=== PATIENT | male | born 1930 | race Caucasian/White ===

== ENCOUNTER 2018-11-26 03:24 | Inpatient (IN) | payer MEDICARE ==
[2018-11-26 04:33] LABS: Troponin I 0.029 ng/mL (< 0.028)
[2018-11-26] MEDS ORDERED: Morphine 2 MG/ML SYRINGE ONE ×2 (05:19→08:38)
[2018-11-26 07:23] LABS: Troponin I 0.022 ng/mL (< 0.028)
[2018-11-26] MEDS ORDERED: hydrALAZINE 20 MG/ML VIAL SLOW IVP PRN (07:54)
[2018-11-26] MEDS ORDERED: Sodium Chloride 0.45% 500 ML IV SCH (08:00)
--- NOTE | 2018-11-26 09:05 | RAD ---
CHEST 1 VIEW AND ABDOMEN 2 VIEWS: Date: 11/26/18 HISTORY: Small bowel obstruction, bradycardia, hypotension. FINDINGS/IMPRESSION: There are changes of median sternotomy. The heart size is normal. The aorta is tortuous. There is a n asogastric tube with tip in the stomach. There are mild atelectatic changes at the lung bases. No marito e air is seen. There is air in loops of small and large bowel. Some of the small bowel loops are dila josé. There are degenerative changes in the spine. POS: [facility]
[2018-11-26] MEDS: Sodium Chloride 0.45% 1,000 ML IV SCH ×3 (09:21→23:17)
[2018-11-26] MEDS ORDERED: Pantoprazole 40 MG VIAL ONE (09:22)
[2018-11-26] MEDS: Pantoprazole 40 MG VIAL IVP SCH (09:23)
--- NOTE | 2018-11-26 11:50 | HP ---
HISTORY OF PRESENT ILLNESS: Iban Dinh is an 88-year-old male patient lives in [place]. He is a retired electronic game developer working for 25 years. He had an open appendectomy in 1955. He had the acute onset of abdominal distention and pain yesterday. Last colonoscopy was 12 or 14 years ago performed at [facility]. He has been having problems with intermittent constipation as he takes Tylenol No. 3 every 2 to 3 days along with tramadol for his arthritis pain. He takes stool softeners to facilitate bowel movements. He had severe episode of pain and presented to the emergency room in [place]. In [place], the patient underwent abdominopelvic CAT scan noncontrast revealing changes suggestive of a bowel obstruction. He had abdominal x-rays revealing air-fluid levels. He had a small caliber NG tube placed. As I am seeing him this morning at 0748 hours, there are no IV fluids running. Troponin is 0.029, white count 7, hemoglobin 12, creatinine 1.72, potassium 5.1, chloride 105, and glucose 122. The patient has not passed stool or flatus since yesterday, had a bowel movement yesterday. CAT scan suggested bowel obstruction distally. While in [place], the patient was trying to urinate after receiving morphine, was standing and became weak, resting his head on his right shoulder, but never fell and never passed out. He has been seen in the emergency room and telemetry monitoring requested. The patient states that he has dizzy episodes at home. The patient had a coronary artery bypass grafting in 2005 along with AVR. He is followed by Dr. Mcallister. He sees by Dr. Mcallister every 6 months. He is scheduled to have an echocardiogram next week. He is scheduled to see Dr. Mcallister next month. He reports having had a stress test probably 2006, 2007 in preparation for total knee replacements and this was normal. He does not have any chest pain or pressure. ALLERGIES: PENICILLIN. SOCIAL HISTORY: Tobacco, none. Alcohol, occasional beer. MEDICATIONS: 1. Crestor 20 mg a day. 2. Protonix 40 mg a day. 3. Furosemide 40 mg a day. 4. Zetia 10 mg a day. 5. Carvedilol 40 mg a day. 6. Aspirin 325 mg a day. 7. Stool softeners as needed. 8. Tylenol No. 3 p.r.n. pain. 9. Ultram p.r.n. pain. He takes Tylenol No. 3 and Ultram 2 to 3 days a week occasionally for severe arthritic pain. 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 PAST SURGICAL HISTORY: Open appendectomy in 1956, coronary artery bypass grafting with AVR in 2005, bilateral total knee replacements in 2006, right shoulder exploration that they could not repair in 2006 or 2007, in 2013 Dr. Priest performed EGD for bleeding duodenal ulcer noted a hiatal hernia, and colonoscopy at [facility] 10 to 12 years ago. REVIEW OF SYSTEMS: Ten-point noncontributory otherwise. FAMILY HISTORY: Noncontributory. PHYSICAL EXAMINATION: VITAL SIGNS: Blood pressure 179/66, pulse 63, respirations 18, and temperature 98.5 degrees. HEAD, EARS, EYES, NOSE, AND THROAT: Unremarkable. LUNGS: Clear to auscultation. CARDIAC: Regular rate and rhythm without murmur or gallop. ABDOMEN: Soft, distended, and tympanitic. Mild tenderness without rebound. EXTREMITIES: No ankle edema. Palpable pedal pulses. LABORATORY DATA: Sodium 141, potassium 5.1, carbon dioxide 26, BUN 23, GFR 41, creatinine 1.72 (baseline for him). Lactic acid 9.8. Liver function tests normal. Hemoglobin 12.8. ASSESSMENT AND PLAN: 1. Small-bowel obstruction. He has a small caliber NG tube placed to about 60 cm. We will obtain a 3-view abdomen today. We will continue NG tube suction. We will plan a small bowel follow-through in the morning, observe. 2. Chronic kidney disease, stable. 3. Initiate IV fluids. He has been in the ER hold for several hours without IV fluids. 4. Coronary artery disease, stable. 5. Prosthetic aortic valve replacement. 6. Allergy to penicillin. 7. Hypertension. 8. History of hiatal hernia; duodenal ulcer bleeding, PPI prophylaxis. 9. Deep venous thrombosis prophylaxis. 10. Consult Dr. Mcallister. 11. The patient is due for an echocardiogram. We will obtain it as there is possibility he may need operative intervention. Hopefully, we can avoid this. Job ID: [id number]
[2018-11-26] MEDS ORDERED: Acetaminophen 1,000 MG in Premix Bag 1 BAG IVPB SCH (12:15)
[2018-11-26] MEDS ORDERED: Benzocaine 20% Spray 60 ML CAN ONE (15:21)
[2018-11-26] MEDS ORDERED: Lidocaine Viscous Sol 2% 15 ml UD Cup ONE (15:21)
--- NOTE | 2018-11-26 17:00 | RAD ---
ABDOMEN ONE VIEW: HISTORY: NG tube placement. FINDINGS: The nasogastric tube is in the gastric fundus, in the left upper quadrant. The bowel gas pattern is nonspecific with a dilated loop of small bowel in the left upper quadrant. There are degenerative ch anges in the spine. POS: [facility]
--- NOTE | 2018-11-26 17:38 | CON ---
DATE OF CONSULTATION: 11/26/2018 TYPE OF CONSULTATION: Cardiology consultation. PRIMARY ENTERPRISE INFRASTRUCTURE ARCHITECT: Callum Mcallister MD. REASON FOR CONSULTATION: Preoperative evaluation. HISTORY OF PRESENT ILLNESS: Mr. Dinh is a pleasant 88-year-old white gentleman, who comes to the hospital for what appears to be a small bowel obstruction. He was evaluated by Dr. De Jesus and is currently being treated conservatively for this. He has not had any gas or bowel movements in the last 24 hours. He has a history of mitral valve disease, status post mitral valve replacement. He has a bioprosthetic valve in the mitral position in 2005, at that same time he also had bypass. Last echocardiogram was on June 01 2017. At which point, his EF was 35% to 40%, bioprosthetic mitral valve was in position, and appeared to be functioning normally. The aortic valve was sclerotic, but open well with moderate aortic insufficiency and moderate tricuspid regurgitation. PAST MEDICAL HISTORY: 1. Hypertension. 2. Hyperlipidemia. 3. Chronic kidney disease. 4. Upper GI bleed on Xarelto. 5. History of paroxysmal atrial fibrillation. PAST SURGICAL HISTORY: 1. Tonsillectomy. 2. Appendectomy. 3. CABG as above. 4. Mitral valve replacement, bioprosthetic as above. 5. Bilateral total knee replacement. 6. Right shoulder surgery. MEDICATIONS: Outpatient medications, most recent note include; 1. Flomax. 2. Pantoprazole. 3. Tylenol No. 3. 4. Zetia 10 mg a day. 5. Aspirin 325 a day. 6. Crestor 20 a day. 7. Furosemide 40 a day. 8. Carvedilol 12.5 b.i.d. 9. Hydralazine 10 twice a day. ALLERGIES: PENICILLINS. REVIEW OF SYSTEMS: A 12-point review of systems was done and was found to be negative unless stated in the history of present illness. SOCIAL HISTORY: No alcohol, tobacco, or drugs. FAMILY HISTORY: Noncontributory. PHYSICAL EXAMINATION: VITAL SIGNS: Temperature 97.2, pulse 80, respiratory rate 18, saturations 98% on 2 L, and blood pressure 179/66. GENERAL: Awake, alert, oriented x3. No distress. HEENT: Normocephalic and atraumatic. NECK: Supple. LUNGS: Clear. CARDIOVASCULAR: S1 and S2. No S3 or S4. There is a grade 2/6 systolic murmur at the apex, holosystolic. ABDOMEN: Soft. Bowel sounds are very much reduced. EXTREMITIES: Trace edema. SKIN: Warm and dry. LABORATORY DATA: Laboratory work was reviewed. Troponin was 0.02 and then 0.02. CBC was reviewed. Chemistries were reviewed. Creatinine is 1.7, GFR of 38. Troponins x4 are 0.04, 0.06, 0.02, and 0.02 with normal CK-MB. Albumin of 4.0, lipase of 33. UA was unremarkable. ASSESSMENT AND PLAN: 1. Small bowel obstruction. 2. History of mitral valve replacement. 3. History of coronary artery bypass graft in 2005. No ischemia on most recent MPI just a few years ago. Currently asymptomatic. 4. Preoperative evaluation: He would be high risk for an intermediate risk procedure, high risk given his coronary artery disease and an ischemic cardiomyopathy, EF in the 35% to 40%. Certainly, he would not be prohibitive and if this would be a life-saving situation, he will need to proceed with surgery for his small bowel obstruction. At this time, the plan is to do conservative therapy and hopefully avoid surgery, but Dr. De Jesus is evaluating on a daily basis. 5. Dr. Mcallister, his primary missile facilities repairer, will evaluate in the morning. Job ID: [id number]
[2018-11-26 19:12] VITALS: BMI 29.0
[2018-11-26] MEDS ORDERED: Morphine 4 MG/ML VIAL SLOW IVP PRN (19:20)
[2018-11-26] MEDS: Ketorolac Tromethamine 30 MG/ML VIAL IVP PRN (20:23)
[2018-11-26] MEDS: Enoxaparin Sodium 30 MG/0.3 ML SYRINGE SC SCH (20:25)
[2018-11-26] MEDS: Acetaminophen 1,000 MG in Premix Bag 1 BAG IVPB PRN (20:45)
[2018-11-27] MEDS: Ondansetron PF 4 MG/2 ML Vial IVP PRN ×2 (01:16→13:21)
[2018-11-27 06:26] LABS: #Lymphocytes 1.4 thou/uL (1.20-3.40); #Monocytes 1.1 thou/uL (0.11-0.59); #Neutrophils 8.2 thou/uL (1.40-6.50); %Basophils 0.2 % (0.0-1.0); %Eosinophils 0.3 % (0.0-10.0); %Monocytes 10.1 % (0.0-10.0); %Neutrophils 76.4 % (42.0-75.0); Hemoglobin 14.6 g/dL (14.0-18.0); Mean Corpuscular HGB CONC 30.5 g/dL (32.0-36.0); Mean Corpuscular Hemoglobin 29.2 pg (27.0-31.0); Platelet Count 172 thou/uL (130-400); RBC Distribution Width 13.5 % (11.5-14.5); Red Blood Cell (RBC) Count 4.99 mill/uL (4.70-6.10); White Blood Cell (WBC) Count 10.7 thou/uL (4.8-10.8)
[2018-11-27 06:49] LABS: Anion Gap 16 mmol/L (10-20); BUN (Urea Nitrogen) 25 mg/dL (8.4-25.7); Calc. Creatinine Clearance 48 mL/min (70-130); Calcium 9.1 mg/dL (7.8-10.44); Carbon Dioxide 17 mmol/L (23-31); Chloride 107 mmol/L (98-107); Estimated GFR-MDRD 46; Glucose 115 mg/dL (83-110); Potassium 4.3 mmol/L (3.5-5.1); Sodium 136 mmol/L (136-145)
[2018-11-27] MEDS: Ketorolac Tromethamine 30 MG/ML VIAL IVP PRN (07:12)
[2018-11-27] MEDS: Sodium Chloride 0.45% 1,000 ML IV SCH ×2 (07:52→18:09)
[2018-11-27] MEDS: Pantoprazole 40 MG VIAL IVP SCH (09:52)
[2018-11-27] MEDS ORDERED: MD-Gastroview 120 ML BOT ONE (09:58)
[2018-11-27] MEDS: Acetaminophen 1,000 MG in Premix Bag 1 BAG IVPB PRN (13:26)
[2018-11-27] MEDS ORDERED: Meropenem 2 GM, Admixture Fee 1 EACH in Sodium Chloride 0.9% 100 ML IVPB SCH (13:45)
[2018-11-27] MEDS ORDERED: Bupivacaine HCl 0.5%/Epinephrine 1:200,000/PF 30 ml Vial ONE (13:59)
--- NOTE | 2018-11-27 14:37 | RAD ---
SMALL BOWEL SERIES: DATE: 11/27/2018. HISTORY: An 88-year-old male with small bowel obstruction. FINDINGS: Vet Assistant view demonstrates air-filled dilated small bowel loops. Gastrografin injected into NG tube pro gresses very slowly in the proximal dilated small intestine. There is no progression between the 1 h our and 2 hour images. IMPRESSION: Evidence for high-grade small bowel obstruction. POS: [facility]USAN
--- NOTE | 2018-11-27 14:57 | PRG ---
DATE OF SERVICE: 11/27/2018 SUBJECTIVE: Iban Dinh is still having quite a bit of pain and abdominal distention. He has not passed any stool or flatus. Abdominal x-rays, 2 hours small-bowel follow-through reveal findings consistent with complete bowel obstruction. There has been no progression of contrast in 2 hours. We have put his NG tube back to suction. OBJECTIVE: VITAL SIGNS: 98.2 degrees, 64, 16, 176/76. LUNGS: Clear to auscultation. CARDIAC: Regular rate and rhythm. ABDOMEN: Distended, tympanitic, slightly tender, but no rebound. No guarding. EXTREMITIES: Unremarkable. LABORATORY DATA: White count 10, hemoglobin 14. Basic metabolic profile unremarkable. Creatinine 1.46, which is improved from yesterday. Potassium 4.3. Troponin 0.022. ASSESSMENT AND PLAN: Complete bowel obstruction. We recommend laparotomy. He is too distended and tympanitic for laparoscopy. His and daughter are in the room with him. Risks of operation including infection, bleeding, reoperation, anastomotic leakage, cardiac events (known coronary artery disease) discussed. The patient agrees and wishes to proceed to relieve his discomfort. Job ID: [id number]
[2018-11-27] MEDS ORDERED: Sodium Chloride 0.9% 20 ML ONE (15:33)
[2018-11-27] MEDS ORDERED: Fentanyl 100 MCG/2 ML VIAL ONE (15:35)
[2018-11-27] MEDS ORDERED: Ondansetron HCl/PF 4 MG/2 ML Vial IVP PRN ×2 (15:39→16:33)
[2018-11-27] MEDS ORDERED: Promethazine HCl 25 MG/ML VIAL SLOW IVP PRN ×2 (15:39→16:33)
[2018-11-27] MEDS ORDERED: Promethazine HCl 25 MG/ML VIAL IM PRN ×2 (15:39→16:33)
[2018-11-27] MEDS ORDERED: ePHEDrine/0.9% NaCl/PF SYRINGE 50 mg/10 ml ONE (16:36)
[2018-11-27] MEDS ORDERED: Glycopyrrolate 0.2 MG/ML 5 ML SYRINGE ONE (16:36)
[2018-11-27] MEDS ORDERED: PHENYLEPHRINE-NS 100 MCG/ML 10 ML SYRINGE ONE (16:36)
[2018-11-27] MEDS ORDERED: Rocuronium Bromide 10 MG/ML (10ML VIAL) ONE (16:36)
[2018-11-27] MEDS ORDERED: Succinylcholine Chloride 20 MG/ML 10 ml SYRINGE FS ONE (16:36)
[2018-11-27] MEDS: Lactated Ringer's 1,000 ML IV SCH ×2 (17:35→22:21)
--- NOTE | 2018-11-27 17:41 | RAD ---
PORTABLE CHEST ONE VIEW: 11/27/18 at 4:39 p.m. HISTORY: Respiratory distress. FINDINGS/IMPRESSION: Comparison is made with the exam of 11/26/18. Changes of median sternotomy are again seen. There is a nasogastric tube with tip in the stomach. The re is contrast in the stomach. Atelectatic changes versus mild infiltrates at the lung bases with pro bable small effusions. No pneumothoraces are seen. there is a right subclavian central line with tip in the projection of the SVC. POS: OFF
[2018-11-27] MEDS: Acetaminophen 1,000 MG in Premix Bag 1 BAG IVPB SCH ×2 (19:11→23:04)
[2018-11-27] MEDS: Enoxaparin Sodium 30 MG/0.3 ML SYRINGE SC SCH (20:03)
[2018-11-27] MEDS: Carvedilol 6.25 MG TAB PO SCH (20:04)
--- NOTE | 2018-11-27 23:41 | OP ---
DATE OF PROCEDURE: 11/27/2018 PREOPERATIVE DIAGNOSIS: Mechanical small bowel obstruction secondary to adhesions. POSTOPERATIVE DIAGNOSIS: Mechanical small bowel obstruction secondary to adhesions with ischemic small bowel, regained viability after release of adhesion. PROCEDURE PERFORMED: Right subclavian vein central line. ANESTHESIA: General, local 0.5% Marcaine with epinephrine 30 mL. DESCRIPTION OF PROCEDURE: The patient was taken to the operating room under general anesthesia, abdomen was prepared with ChloraPrep, draped in routine fashion. Hart catheter placed. It was left in place. Incision was made periumbilically and carried down through skin, subcutaneous tissue, centered about the umbilicus. Entered the abdominal cavity, there was some bloody fluid in the abdominal cavity, this was evacuated. There was an obstructive adhesive band in the right lower quadrant (prior appendectomy in 195) and this was released, releasing the obstructive process. Small bowel contents milked retrograde into the stomach, evacuating 3 L of gastric content. Once this was accomplished, the small bowel appeared to be ischemic ileum and it was returned to the abdominal cavity and abdominal cavity irrigated and washed with 2 L of saline, evacuating it, returning clear fluid. Small bowel was inspected and viability had returned and there was no need for resection and no need for a second look. Sponge and needle counts were correct. Redundant omentum removed and discarded. It was removed, divided between clamps, ligated with 2-0 silk ties. Seprafilm was placement between the omentum and the abdominal wall and fascia approximated with continuous suture #1 PDS. Skin and subcutaneous tissues irrigated. Skin approximated with continuous subcutaneous suture of 4-0 Monocryl and [place] glue applied. A right subclavian vein central line was placed using Seldinger technique after ChloraPrep. J-wire had been removed, catheter secured with 2 interrupted sutures of 3-0 silk. Each port aspirated for blood, flushed with saline solution. The patient tolerated the procedure well. Job ID: [id number]
[2018-11-28] MEDS: Acetaminophen 1,000 MG in Premix Bag 1 BAG IVPB SCH ×4 (05:27→23:56)
[2018-11-28] MEDS: Lactated Ringer's 1,000 ML IV SCH ×4 (07:38→23:56)
[2018-11-28] MEDS: Lisinopril 5 MG TAB PO SCH (08:40)
[2018-11-28] MEDS: Tamsulosin HCl 0.4 MG CAP PO SCH (08:41)
[2018-11-28] MEDS: Carvedilol 6.25 MG TAB PO SCH ×2 (08:41→20:49)
[2018-11-28] MEDS: Pantoprazole 40 MG VIAL IVP SCH (08:41)
[2018-11-28 11:03] LABS: ALT (SGPT) 9 U/L (8-55); AST (SGOT) 14 U/L (5-34); Alkaline Phosphatase 65 U/L (40-150); Anion Gap 15 mmol/L (10-20); BUN (Urea Nitrogen) 40 mg/dL (8.4-25.7); Bilirubin, Total 1.5 mg/dL (0.2-1.2); Calc. Creatinine Clearance 35 mL/min (70-130); Calcium 8.9 mg/dL (7.8-10.44); Carbon Dioxide 22 mmol/L (23-31); Chloride 110 mmol/L (98-107); Estimated GFR-MDRD 32; Globulin 2.7 g/dL (2.4-3.5); Glucose 100 mg/dL (83-110); Potassium 3.8 mmol/L (3.5-5.1); Protein, Total 5.7 g/dL (5.8-8.1); Sodium 143 mmol/L (136-145)
[2018-11-28 11:13] LABS: Hemoglobin 12.2 g/dL (14.0-18.0); Mean Corpuscular HGB CONC 32.1 g/dL (32.0-36.0); Mean Corpuscular Hemoglobin 29.2 pg (27.0-31.0); Mean Corpuscular Volume 91.1 fL (78.0-98.0); Platelet Count 131 thou/uL (130-400); RBC Distribution Width 13.1 % (11.5-14.5); Red Blood Cell (RBC) Count 4.16 mill/uL (4.70-6.10); White Blood Cell (WBC) Count 7.1 thou/uL (4.8-10.8)
[2018-11-28 11:25] LABS: Band 54 % (5-11); Eosinophils 2 % (0-10); Lymphocytes 11 % (21-51); MDiff Complete? YES; Metamyelocyte 2 % (0-0); Monocytes 5 % (0-10); Neutrophil 26 % (42-75); Ovalocytes SLIGHT = 2-5 cells (100X) (0-1/hpf); Platelet Morphology Comment Appears Adequate; Reflex for Review?? YES
[2018-11-28] MEDS ORDERED: Sodium Chloride 0.9% 500 ML IV SCH (17:30)
--- NOTE | 2018-11-28 17:53 | PRG ---
DATE OF SERVICE: 11/28/2018 SUBJECTIVE: Iban Dinh is doing well today. He is taking abundant ice chips, drinking water, and taking carbonated beverages. He has an NG tube in place. He was instructed not to take carbonated beverages. He is instructed to take only sips and chips, but not to drink water. We will place a communication order to nursing to facilitate this restriction. OBJECTIVE: VITAL SIGNS: Temperature 98.1 degrees, heart rate 96, and blood pressure 138/62. LUNGS: Clear to auscultation. CARDIAC: Regular rate and rhythm without murmur or gallop. ABDOMEN: Soft, quiet, slightly tympanitic and distended. No guarding. Wound looks good. NG tube output 1775 over 24 hours (this may reflect his copious oral intake with an NG tube). LABORATORY DATA: The patient's white count is 7, hemoglobin 12.2, and he has a left shift. Sodium 143, potassium 3.8, BUN 40, creatinine 2.01, and bilirubin 1.5. ASSESSMENT AND PLAN: 1. Acute kidney injury. We will increase his intravenous fluids slightly. Continue intravenous fluid hydration. 2. Left shift on his white count. This is part related to his mucosal injury from his acute vascular ischemic event of his small bowel. This should resolve with time. Bowel resection was not necessary. There is no anastomosis to worry about a leak. We will, however, add antibiotics to cover him for any translocated bacteria due to the mucosal barrier insult. 3. Coronary artery disease. 4. Benign prostatic hypertrophy. The patient's Hart catheter was removed. He has voided today, although sparingly. Job ID: [id number]
[2018-11-28] MEDS: metroNIDAZOLE 500 MG in Premix Bag 1 BAG IVPB SCH (20:49)
[2018-11-28] MEDS: Enoxaparin Sodium 30 MG/0.3 ML SYRINGE SC SCH (20:50)
[2018-11-29] MEDS: metroNIDAZOLE 500 MG in Premix Bag 1 BAG IVPB SCH ×3 (05:26→20:56)
[2018-11-29] MEDS: Acetaminophen 1,000 MG in Premix Bag 1 BAG IVPB SCH ×3 (05:27→18:49)
[2018-11-29 06:24] LABS: Anion Gap 12 mmol/L (10-20); BUN (Urea Nitrogen) 38 mg/dL (8.4-25.7); Calc. Creatinine Clearance 48 mL/min (70-130); Calcium 8.6 mg/dL (7.8-10.44); Carbon Dioxide 22 mmol/L (23-31); Chloride 110 mmol/L (98-107); Estimated GFR-MDRD 46; Glucose 95 mg/dL (83-110); Potassium 3.6 mmol/L (3.5-5.1); Sodium 140 mmol/L (136-145)
[2018-11-29] MEDS: Carvedilol 6.25 MG TAB PO SCH ×2 (09:09→21:00)
[2018-11-29] MEDS: Lisinopril 5 MG TAB PO SCH (09:10)
[2018-11-29] MEDS: Pantoprazole 40 MG VIAL IVP SCH (09:11)
[2018-11-29] MEDS: Tamsulosin HCl 0.4 MG CAP PO SCH (09:11)
[2018-11-29] MEDS: Lactated Ringer's 1,000 ML IV SCH ×2 (11:54→20:53)
--- NOTE | 2018-11-29 15:04 | PRG ---
DATE OF SERVICE: 11/29/2018 SUBJECTIVE: Mr. Dinh is doing well today. He is hungry. He wants to eat. OBJECTIVE: VITAL SIGNS: Temperature 98.4 degrees, pulse 80, and blood pressure 140/78. LUNGS: Clear to auscultation. CARDIAC: Regular rate and rhythm without murmur or gallop. ABDOMEN: Soft, nontympanitic. Occasional rare bowel sounds. No flatus or stool. NG tube output for 24 hours has been 1400 mL. He is taking copious ice chips, however. EXTREMITIES: Unremarkable. LABORATORY DATA: Hemoglobin 12.2 yesterday. No labs today. Electrolytes: Sodium 140, potassium 3.6, BUN 38 down from 40 yesterday, creatinine 1.45 down from 2.01 yesterday, and GFR 46. ASSESSMENT AND PLAN: 1. Status post laparotomy and lysis of adhesions for an obstructive adhesion with acutely ischemic bowel, regained its viability after release of the adhesions. He has mucosal injury, recovering, and an ileus. We would trial of clamping the NG tube today, and at 5 o'clock, the nurse will call me the residual, and maybe we can remove the tube. After we removed the NG tube, we would continue sips and chips for now, and he had medications. Tomorrow if he is doing well, we may start liquids. Overall, he is making good progress, and he is stable on telemetry. Echocardiogram today reveals ejection fraction of 35% to 40%, severe tricuspid regurgitation, normally functioning bioprosthetic artificial valve, mitral. Job ID: [id number]
[2018-11-29] MEDS: Enoxaparin Sodium 30 MG/0.3 ML SYRINGE SC SCH (21:15)
[2018-11-30] MEDS: Acetaminophen 1,000 MG in Premix Bag 1 BAG IVPB SCH ×2 (00:05→05:23)
[2018-11-30] MEDS: metroNIDAZOLE 500 MG in Premix Bag 1 BAG IVPB SCH (04:18)
[2018-11-30 06:55] LABS: Anion Gap 12 mmol/L (10-20); BUN (Urea Nitrogen) 27 mg/dL (8.4-25.7); Calc. Creatinine Clearance 57 mL/min (70-130); Calcium 8.5 mg/dL (7.8-10.44); Carbon Dioxide 24 mmol/L (23-31); Chloride 109 mmol/L (98-107); Estimated GFR-MDRD 54; Glucose 93 mg/dL (83-110); Magnesium 1.7 mg/dL (1.6-2.6); Potassium 3.6 mmol/L (3.5-5.1); Sodium 141 mmol/L (136-145)
[2018-11-30 08:40] LABS: #Eosinphils 0.7 thou/uL (0.0-0.7); #Lymphocytes 0.8 thou/uL (1.20-3.40); #Monocytes 0.6 thou/uL (0.11-0.59); #Neutrophils 4.7 thou/uL (1.40-6.50); %Eosinophils 9.8 % (0.0-10.0); %Lymphocytes 11.2 % (21.0-51.0); %Monocytes 8.8 % (0.0-10.0); %Neutrophils 70.1 % (42.0-75.0); MDiff Complete? YES; Mean Corpuscular HGB CONC 32.2 g/dL (32.0-36.0); Mean Corpuscular Hemoglobin 29.9 pg (27.0-31.0); Mean Corpuscular Volume 92.9 fL (78.0-98.0); Mean Platelet Volume 8.1 fL (7.4-10.4); Platelet Count 111 thou/uL (130-400); Platelet Morphology Comment Appears Decreased; Polychromasia SLIGHT = 2-3 cells (100X) (0-2/hpf); RBC Distribution Width 12.8 % (11.5-14.5); Red Blood Cell (RBC) Count 3.33 mill/uL (4.70-6.10); White Blood Cell (WBC) Count 6.7 thou/uL (4.8-10.8)
[2018-11-30] MEDS: Lactated Ringer's 1,000 ML IV SCH (09:23)
[2018-11-30] MEDS: Tamsulosin HCl 0.4 MG CAP PO SCH (09:38)
[2018-11-30] MEDS: Pantoprazole 40 MG VIAL IVP SCH (09:38)
[2018-11-30] MEDS: Lisinopril 5 MG TAB PO SCH (09:38)
[2018-11-30] MEDS: Carvedilol 6.25 MG TAB PO SCH ×2 (09:38→21:08)
[2018-11-30] MEDS ORDERED: Acetaminophen 500 MG TAB PO PRN (11:25)
[2018-11-30] MEDS ORDERED: traMADol HCl 50 MG TAB PO PRN ×3 (11:25→11:26)
--- NOTE | 2018-11-30 11:58 | PRG ---
DATE OF SERVICE: 11/30/2018 SUBJECTIVE: Mr. Dinh is doing well today. His NG-tube was removed last night when he had a residual of only 50 mL after 8-hour clamping. He has had bowel movements and passed flatus today. He is tolerating his liquids. OBJECTIVE: VITAL SIGNS: 98 degrees, 89, and 141/87. HEAD, EARS, EYES, NOSE, AND THROAT: Unremarkable. LUNGS: Clear to auscultation. CARDIAC: Regular rate and rhythm without murmur or gallop. ABDOMEN: Soft, protuberant, obese, and non-tympanitic. EXTREMITIES: Unremarkable. LABORATORY DATA: White count 6, hemoglobin 10, and differential unremarkable. Basic metabolic profile is normal. Potassium 3.6, BUN has decreased from 40 to 27, and creatinine from 2 to 1.26 in the normal range. ASSESSMENT AND PLAN: 1. Doing well. Gastrointestinal functions recovered. I had placed him on Levaquin and Flagyl (penicillin allergy) as a prophylaxis to prevent bacteremia from mucosal barrier leaking from this acutely ischemic bowel, which is now resolved. I will stop his antibiotics. We will advance him to a regular diet. From a surgical perspective, he can be discharged home in the next day or 2. Dr. Patton is covering and will see him over the weekend. He does not have any abdominal pain. He is having his baseline arthritis pain when he first gets up in the morning. Medications on discharge will be Tylenol [id number], p.r.n. ibuprofen (minimize use due to chronic kidney disease), and Ultram as needed. I left a prescription on his chart. 2. History of atrial fibrillation, follow Dr. Mcallister. I have discussed with Dr. Mcallister. We will leave him on telemetry unit because of this history. It is safe to anticoagulate him anytime from a surgical standpoint. Job ID: [id number]
[2018-11-30] MEDS: Apixaban 5 MG TAB PO SCH (21:08)
[2018-12-01] MEDS: Furosemide 40 MG TAB PO SCH (05:07)
[2018-12-01] MEDS ORDERED: Aspirin 325 mg Enteric Coated Tablet PO SCH (09:00)
[2018-12-01] MEDS: Finasteride 5 MG TAB PO SCH (09:06)
[2018-12-01] MEDS: Apixaban 5 MG TAB PO SCH ×2 (09:06→21:29)
[2018-12-01] MEDS: Rosuvastatin 20 MG TAB PO SCH (09:06)
[2018-12-01] MEDS: Ezetimibe 10 MG TAB PO SCH (09:06)
[2018-12-01] MEDS: Tamsulosin HCl 0.4 MG CAP PO SCH (09:06)
[2018-12-01] MEDS: Carvedilol 6.25 MG TAB PO SCH ×2 (09:07→21:29)
[2018-12-01] MEDS: Aspirin 81 mg Enteric Coated Tablet PO SCH (09:07)
[2018-12-01] MEDS: Acetaminophen/Codeine 30-300mg Tablet PO SCH (09:07)
[2018-12-01] MEDS: Lisinopril 5 MG TAB PO SCH (09:08)
[2018-12-01] MEDS: Polyethylene Glycol 3350 17 GM Packet PO SCH (09:10)
[2018-12-01 11:45] LABS: #Eosinphils 0.5 thou/uL (0.0-0.7); #Lymphocytes 0.8 thou/uL (1.20-3.40); #Monocytes 0.7 thou/uL (0.11-0.59); #Neutrophils 4.7 thou/uL (1.40-6.50); %Basophils 0.3 % (0.0-1.0); %Eosinophils 7.4 % (0.0-10.0); %Lymphocytes 12.3 % (21.0-51.0); %Monocytes 9.8 % (0.0-10.0); %Neutrophils 70.1 % (42.0-75.0); Hemoglobin 11.1 g/dL (14.0-18.0); Mean Corpuscular HGB CONC 31.8 g/dL (32.0-36.0); Mean Corpuscular Hemoglobin 29.3 pg (27.0-31.0); Mean Corpuscular Volume 92.2 fL (78.0-98.0); Mean Platelet Volume 7.5 fL (7.4-10.4); Platelet Count 160 thou/uL (130-400); RBC Distribution Width 12.8 % (11.5-14.5); White Blood Cell (WBC) Count 6.7 thou/uL (4.8-10.8)
[2018-12-01 12:07] LABS: Anion Gap 14 mmol/L (10-20); BUN (Urea Nitrogen) 19 mg/dL (8.4-25.7); Calc. Creatinine Clearance 63 mL/min (70-130); Carbon Dioxide 21 mmol/L (23-31); Chloride 106 mmol/L (98-107); Estimated GFR-MDRD 59; Glucose 112 mg/dL (83-110); Sodium 137 mmol/L (136-145)
[2018-12-01 12:12] LABS: Troponin I 0.074 ng/mL (< 0.028)
--- NOTE | 2018-12-01 13:19 | PDOC.GSPN ---
Surgery Progress Note: Subj - Subjective Narrative: Patient states that he was doing great until last night. He apparently became quite short of breath and had to have oxygen replaced. He states that he felt distended and uncomfortable when he was having trouble breathing but did not have any chest pain. His anticoagulant was restarted this morning. He feels like he is breathing normally today and that his abdomen is less distended. He has passed gas and had several liquid bowel movements. Vital signs are okay on oxygen. Abdomen is soft and nondistended. Bowel sounds are present in his incisions are clean and healing. His lungs are clear to auscultation. Assessment/plan: Dyspnea of unclear cause. May have been due to abdominal distention the patient is also at risk for pneumonia, aspiration, atelectasis, and PE. He is already on therapeutic anticoagulation, and his renal function has just returned to normal so I don't want to get a CT with contrast since I feel like PE is relatively low probability. I will check a chest x-ray, labs and EKG however. We will try to wean him off his oxygen today. If he does alright tonight he will likely go home tomorrow. Doing well from a surgical standpoint from his lysis of adhesions. Surgery Progress Note: Obj - Vital signs Vital signs: Vital Signs - Most Recent Temp Pulse Resp BP Pulse Ox 98.0 F 85 18 111/75 97 12/01/18 11:36 12/01/18 11:36 12/01/18 11:36 12/01/18 11:36 12/01/18 11:36 Surgery Progress Note: Results - Labs Result Diagrams: 12/01/18 11:34 12/01/18 11:34 Lab results: Laboratory Results - last 24 hr 12/01/18 12/01/18 12/01/18 11:34 11:34 11:34 WBC 6.7 RBC 3.80 L Hgb 11.1 L Hct 35.1 L MCV 92.2 MCH 29.3 MCHC 31.8 L RDW 12.8 Plt Count 160 MPV 7.5 Neutrophils % 70.1 Lymphocytes % 12.3 L Monocytes % 9.8 Eosinophils % 7.4 Basophils % 0.3 Neutrophils # 4.7 Lymphocytes # 0.8 L Monocytes # 0.7 H Eosinophils # 0.5 Basophils # 0.0 Sodium 137 Potassium 4.0 Chloride 106 Carbon Dioxide 21 L Anion Gap 14 BUN 19 Creatinine 1.16 Estimated GFR (MDRD) 59 Glucose 112 H Calcium 9.0 Troponin I 0.074 H
--- NOTE | 2018-12-01 15:48 | RAD ---
RADIOGRAPH CHEST 2 VIEWS: Date: 12/01/2017. Time: 1:02 p.m. HISTORY: An 88-year-old male with dyspnea. COMPARISON: One view study of 11/27/2018. FINDINGS: Right subclavian central venous catheter remains with distal tip in the SVC. The lateral view demons trates small bilateral pleural effusions. There were subsegmental atelectasis at the bilateral lung bases on the previous frontal view. The one on the left has improved or resolved. Mild subsegmental atelectasis remains unchanged at the right base. No cardiomegaly. Ectasia and tortuosity of the th oracic aorta. Mid and upper lung zones are clear. No pneumothorax. Sternotomy wires. IMPRESSION: 1. Small bilateral pleural effusions. 2. Mild subsegmental atelectasis at the right lung base. 3. Right subclavian central venous catheter. TIFFANI [] POS: [facility]USAN
--- NOTE | 2018-12-01 16:27 | PDOC.CTH ---
Cardiology Progress Note - Subjective He was more SOB earlier this morning. This has all resolved on its own without a specific intervention. - Objective Vital Signs Temp Pulse Resp BP BP BP Pulse Ox 12/01/18 11:36 98.0 F 85 18 111/75 97 12/01/18 09:08 64 133/87 12/01/18 09:07 133/87 12/01/18 07:41 97.9 F 64 20 133/87 95 Weight 222 lb 14.4 oz 11/30/18 12/01/18 12/02/18 06:59 06:59 06:59 Intake Total 2940 2262 130 Output Total 1555 1230 500 Balance 1385 1032 -370 - Physical Examination General/Neuro: alert & oriented x3, NAD Neck: no JVD present Lungs: CTA, unlabored respirations Heart: RRR Abdomen: NT/ND Extremities: + edema B (1+) - Telemetry Telemetry Rhythm: Afib HR 80's. - Labs Result Diagrams: 12/01/18 11:34 12/01/18 11:34 Troponin/CKMB Troponin I 0.074 ng/mL (< 0.028) H 12/01/18 11:34 - Assessment/Plan 1. Ischemic CM 2. Small bowel obstruction 3. Afib 4. SOB PLAN: - Will give one dose IV lasix. - Continue to monitor.
[2018-12-01] MEDS ORDERED: Furosemide 40 MG/4 ML VIAL SLOW IVP SCH (16:30)
--- NOTE | 2018-12-01 23:17 | EKG ---
Test Reason : Blood Pressure : / mmHG Vent. Rate : 062 BPM Atrial Rate : 241 BPM P-R Int : 000 ms QRS Dur : 142 ms QT Int : 494 ms P-R-T Axes : 000 -52 095 degrees QTc Int : 501 ms Wide QRS rhythm Left axis deviation Left ventricular hypertrophy with QRS widening and repolarization abnormality Abnormal ECG Confirmed by NALINI SIEGEL ([id number]), editor managing newspaper JILLIAN LE ([id number]) on 12/01/2018 11:17:26 PM Referred By: Confirmed By:NALINI SIEGEL
[2018-12-02] MEDS: Aspirin 81 mg Enteric Coated Tablet PO SCH (09:35)
[2018-12-02] MEDS: Furosemide 40 MG TAB PO SCH (09:35)
[2018-12-02] MEDS: Apixaban 5 MG TAB PO SCH (09:35)
[2018-12-02] MEDS: Acetaminophen/Codeine 30-300mg Tablet PO SCH (09:35)
[2018-12-02] MEDS: Lisinopril 5 MG TAB PO SCH (09:35)
[2018-12-02] MEDS: Rosuvastatin 20 MG TAB PO SCH (09:35)
[2018-12-02] MEDS: Polyethylene Glycol 3350 17 GM Packet PO SCH (09:36)
[2018-12-02] MEDS: Tamsulosin HCl 0.4 MG CAP PO SCH (09:36)
[2018-12-02] MEDS: Ezetimibe 10 MG TAB PO SCH (09:36)
[2018-12-02] MEDS: Finasteride 5 MG TAB PO SCH (09:36)
[2018-12-02] MEDS: Carvedilol 6.25 MG TAB PO SCH (10:21)
[2018-12-02 13:11] VITALS: BP 135/84; TEMP 98
== END 2018-12-02 15:42 | disposition home or self-care (01) | DRG 336 ==
LOC: ERS 03:24 → ERHOLD 03:39 → 2NO 04:16
PROVIDERS: ADMIT Specialist; ATTEND Specialist
PROC: 05H533Z Insertion of Infusion Device into Right Subclavian Vein, Percutaneous Approach (ICD-10-PCS; principal; 2018-11-26)
PROC: 0DNW0ZZ Release Peritoneum, Open Approach (ICD-10-PCS; 2018-11-26)
DX: K56.50 Intestinal adhesions [bands], unspecified as to partial versus complete obstruction (principal); N17.9 Acute kidney failure, unspecified; I25.10 Atherosclerotic heart disease of native coronary artery without angina pectoris; N18.9 Chronic kidney disease, unspecified; Z95.2 Presence of prosthetic heart valve; E78.5 Hyperlipidemia, unspecified; Z95.1 Presence of aortocoronary bypass graft; I48.0 Paroxysmal atrial fibrillation; N40.0 Benign prostatic hyperplasia without lower urinary tract symptoms
CPT/HCPCS: 36415; 71045; 71046; 74018; 74022; 74250; 80048; 80053; 83735; 84484; 85025; 85060; 93005; 93010; 93306; 96374; 96375; 96376; C9113; J0131; J0670; J1650; J1885; J1940; J1956; J2185; J2270; J2405; J3010; J7050; Q9963

== ENCOUNTER 2018-12-06 14:54 | Inpatient (IN) | payer MEDICARE ==
[~2018-12-06 14:54] MED LIST: ISOVUE-370 76%-LOCM 1 ML ONE
[2018-12-06] MEDS ORDERED: Succinylcholine Chloride 20 MG/ML 10 ml SYRINGE FS ONE (15:04)
[2018-12-06] MEDS ORDERED: Midazolam HCl 2 mg/2 ml Vial ONE (15:13)
[2018-12-06] MEDS ORDERED: Fentanyl 100 MCG/2 ML VIAL ONE ×2 (15:14→16:26)
[2018-12-06 15:33] LABS: Hemoglobin 11.6 g/dL (14.0-18.0); Mean Corpuscular HGB CONC 31.4 g/dL (32.0-36.0); Mean Corpuscular Hemoglobin 27.7 pg (27.0-31.0); Mean Corpuscular Volume 88.4 fL (78.0-98.0); Mean Platelet Volume 7.1 fL (7.4-10.4); Platelet Count 264 thou/uL (130-400); RBC Distribution Width 12.9 % (11.5-14.5); Red Blood Cell (RBC) Count 4.19 mill/uL (4.70-6.10); White Blood Cell (WBC) Count 23.4 thou/uL (4.8-10.8)
[2018-12-06 15:34] LABS: ALT (SGPT) 16 U/L (8-55); AST (SGOT) 23 U/L (5-34); Albumin 3.2 g/dL (3.4-4.8); Alkaline Phosphatase 91 U/L (40-150); Anion Gap 14 mmol/L (10-20); BUN (Urea Nitrogen) 11 mg/dL (8.4-25.7); Calc. Creatinine Clearance 0 mL/min (70-130); Calcium 8.2 mg/dL (7.8-10.44); Carbon Dioxide 17 mmol/L (23-31); Chloride 108 mmol/L (98-107); Estimated GFR-MDRD 42; Globulin 2.7 g/dL (2.4-3.5); Glucose 96 mg/dL (83-110); Lipase 73 U/L (8-78); Magnesium 1.4 mg/dL (1.6-2.6); Protein, Total 5.9 g/dL (5.8-8.1); Sodium 136 mmol/L (136-145)
[2018-12-06 15:37] LABS: Potassium 2.7 mmol/L (3.5-5.1)
[2018-12-06 15:47] LABS: INR-International Normal Ratio 1.5; PTT 36.3 SEC (22.9-36.1); Prothrombin Time 17.9 SEC (12.0-14.7)
[2018-12-06 15:55] LABS: Band 1 % (5-11); Lymphocytes 14 % (21-51); MDiff Complete? YES; Monocytes 4 % (0-10); Neutrophil 81 % (42-75); Platelet Morphology Comment Appears Adequate
--- NOTE | 2018-12-06 15:56 | CT ---
CT OF BRAIN PERFORMED WITHOUT CONTRAST ENHANCEMENT: Date: 12/06/18 HISTORY: Altered mental status. FINDINGS: There is generalized ventricular and sulcal prominence. There are no signs of intracerebral hemorrhag e or extra-axial fluid collections. No mass lesion or mass effect. The mastoid air cells and visualiz ed sinuses are clear. Incidental note is made of some minimal air density within the soft tissues dir ectly anterior to the left maxilla and near the pterygoids and adjacent to the angle of the mandible. I do not have any history of any type of penetrating trauma. If indicated, CT of the facial bones ma y be helpful in assessing for any type of fracture or some area of bony dehiscence related to the sin uses. IMPRESSION: No acute intracranial abnormalities. Incidental note of air seen within the soft tissues as discussed above. POS: [facility]
[2018-12-06 16:22] LABS: Actual Bicarbonate (HCO3a) 17.7 mEq/L (22-28); Analyzer IN Cardio ER; Base Excess (BEa) -7.4 mEq/L (-2.0 to +3.0); CO2 Tension 34.3 mmHg (35.0-45.0); Calcium, Ionized 1.06 mmol/L (1.12-1.30); Carboxyhemoglobin (COHb) 0.3 gm% (0.0-3.0); Hemoglobin (Hb) 10.6 g/dL (14.0-18.0); O2 Tension (PaO2) 101.4 mmHg (> 60.0); Potassium - ABG Lab 2.42 mmol/L (3.70-5.30); pH, Arterial 7.33 (7.35-7.45)
[2018-12-06 16:23] LABS: Puncture Site L.R.
--- NOTE | 2018-12-06 16:23 | CT ---
CTA OF THE THORAX UTILIZING IV CONTRAST AND 3D REFORMATTED IMAGING CT OF THE ABDOMEN AND PELVIS WITH IV CONTRAST 12/06/18 INDICATION: History of dyspnea. Rule out PE. Abdominal pain since the morning, status post small bowel obstructio n and laparotomy, now with associated fever. FINDINGS: There is bibasilar air space opacity suspicious for aspiration or pneumonia. The patient is intubate d. Gastric catheter is present within the stomach. There is subsegmental atelectasis involving both u pper lobes. There is postsurgical change of prior CABG. There is coronary artery and thoracic aortic calcifications. No central or segmental pulmonary embolus grossly evident within limitations of the e xam. Motion artifact slightly limits image detail of segmental branches. There are layered gallstones within the gallbladder. There is a small hypodensity within the right hepatic dome, too small to fully characterize on this c urrent study. The pancreas, adrenal glands and spleen appear within normal limits. Atrophic left kidney is unremark able appearing. There is stable right nephrolithiasis. There is a stable stone seen at the left UVJ. There is no right sided hydronephrosis. No pathologically enlarged lymph nodes are evident. There is improvement in the degree of small bowel dilatation seen from the comparison dated 11/26/18 w here there was a closed loop obstruction in the right lower quadrant of the abdomen. There is still s ome mild residual dilatation of numerous loops of small bowel within the central abdomen likely refle cting ileus. There is wall thickening involving the rectum. There is a fluid and gas collection seen within the retrovesicular space measuring 5.4 x 2.2 cm suspi cious for a small abscess. There is scattered diverticula. No free air is demonstrated. There is stable compression abnormalities seen at L2 and T10. There are scattered degenerative change . IMPRESSION: 1. No central or segmental pulmonary embolus. 2. Bibasilar pneumonia or aspiration. 3. Small retrovesicular intrapelvic abscess. The position of the collection is centrally within the pelvis which would make percutaneous sampling difficult. 4. Mild diffuse small bowel ileus. 5. Stable atrophic left kidney and right nephrolithiasis. There is a stable calcification seen i n the distal left ureter at the left UVJ. 6. Wall thickening in the rectum may be related to underdistention; however, proctitis cannot be entirely excluded. 7. Stable compression abnormalities of T10 and L2. POS: TPC
[2018-12-06 16:24] LABS: ALV-art Gradient 283.525 (0-20)
[2018-12-06] MEDS ORDERED: Ondansetron PF 4 MG/2 ML Vial IVP PRN (16:27)
--- NOTE | 2018-12-06 16:36 | RAD ---
RADIOGRAPH CHEST 1 VIEW: Date: 12/06/18 Time: 3:13 p.m. HISTORY: 88-year-old male status post intubation. COMPARISON: 12/01/18 FINDINGS: Endotracheal tube has been placed into mid thoracic trachea. NG tube has been placed into the left up per quadrant. Previously demonstrated right subclavian central line has been removed. New finding of mildly increased attenuation at the bases of the bilateral lower lobes, left greater than right, perh aps atelectasis. This extends into the left infrahilar region. Again noted are the sternotomy wires. No pulmonary edema. This is a supine image, which would be insensitive for pneumothorax. IMPRESSION: Status post intubation with endotracheal tube and nasogastric tube. TIFFANI [] POS: SUSAN
[2018-12-06] MEDS ORDERED: Lactated Ringer's 1,000 ML IV SCH ×2 (16:45→21:00)
[2018-12-06] MEDS ORDERED: Potassium Chloride 20 MEQ in Lactated Ringer's 1,000 ML IV SCH (16:45)
[2018-12-06] MEDS ORDERED: Potassium Chloride 40 MEQ in Premix Bag 1 BAG IVPB SCH (16:45)
[2018-12-06] MEDS ORDERED: Ventilator Sedation Protocol 1 EACH FS SCH (16:45)
[2018-12-06] MEDS ORDERED: CCU Electrolyte Replacement 1 EACH FS ONE (16:55)
[2018-12-06] MEDS ORDERED: Ventilator Sedation Protocol 1 EACH FS ONE (16:55)
[2018-12-06] MEDS ORDERED: Norepinephrine 8 MG/0.9% NS 250 ML ONE (17:01)
[2018-12-06] MEDS ORDERED: Pantoprazole 40 MG VIAL ONE (17:13)
[2018-12-06] MEDS ORDERED: Magnesium 2 GM/50 ML BAG (IN WATER) ONE (17:13)
[2018-12-06] MEDS ORDERED: Fentanyl BOLUS 250 ML IVPB PRN (17:17)
[2018-12-06] MEDS ORDERED: DISCONTINUE PREVIOUS NARCOTIC PAIN MEDICATIONS AND BENZODIAZEPINES FS SCH (17:17)
[2018-12-06] MEDS ORDERED: Lorazepam 2 MG/ML VIAL SLOW IVP PRN (17:17)
[2018-12-06] MEDS ORDERED: Propofol BOLUS 1,000 MG/100 ML VIAL IV PRN (17:17)
[2018-12-06] MEDS ORDERED: Morphine 2 MG/ML SYRINGE SLOW IVP PRN (17:17)
[2018-12-06] MEDS ORDERED: Potassium Chloride 40 MEQ in Sodium Chloride 0.9% 250 ML 250 ML IVPB PRN (17:18)
[2018-12-06] MEDS ORDERED: Potassium Phosphate 15 MMOL in Sodium Chloride 0.9% 250 ML 250 ML IV PRN (17:18)
[2018-12-06] MEDS ORDERED: Magnesium 2 GM/NS 0.9% 100 ML 2 GM in Premix Bag 1 BAG IVPB PRN (17:18)
[2018-12-06] MEDS ORDERED: Magnesium Oxide 400 MG TAB PO PRN ×2 (17:18)
[2018-12-06] MEDS ORDERED: Potassium Chloride 20 MEQ TAB PO PRN (17:18)
[2018-12-06] MEDS ORDERED: Potassium Phosphate 12 MMOL in Sodium Chloride 0.9% 250 ML 250 ML IV PRN (17:18)
[2018-12-06] MEDS ORDERED: Potassium Chloride 40 MEQ in Premix Bag 1 BAG IVPB PRN (17:18)
[2018-12-06] MEDS ORDERED: Potassium Phosphate 9 MMOL in Sodium Chloride 0.9% 100 ML IVPB PRN (17:18)
[2018-12-06] MEDS ORDERED: Cefepime 2 GM VIAL ONE (17:24)
--- NOTE | 2018-12-06 17:40 | HP ---
HISTORY OF PRESENT ILLNESS: Mr. Dinh is an 88-year-old male patient, who recently suffered a bowel obstruction. He had an open appendectomy in 1956. He presented on 11/26, and was taken the operating room 11/27/2018 for complete bowel obstruction. He had a small laparotomy, periumbilical, midline, releasing obstructive adhesive band. His terminal ileum was ischemic, but on release of the adhesive band, the small bowel regained viability and resection was not necessary. The patient did well postoperatively, and was discharged home on 12/02/2018. The patient's son called my office today that he was not feeling well and had been having loose stools, although only had one loose bowel movement today. The patient was seen in my office and his blood pressure was in the 80s, heart rate 55, and he appeared to be dyspneic. He had mental status changes and was lethargic, which was atypical for him. His abdomen was soft, nontender, benign. He did not have any abdominal pain. I took him immediately to the emergency room in a wheelchair forced my way to the resection area to gain him an ER bed as soon as possible. I discussed his care with Dr. Cortez. Dr. Cortez assumed his care, and in the emergency room, the patient's blood pressure systolic was 81. On obtaining a bed status, Dr. Cortez noted that the patient became much more lethargic and blood pressure in the 50s, and he was immediately intubated and evaluated. CTA revealed negative pulmonary embolus. Chest x-ray revealed good endotracheal tube placement. Dr. Cortez placed a central line. The patient had laboratories noting a white count of 23,000, hemoglobin of 11.6. His sodium was 136, potassium 2.7, BUN 11, creatinine 1.56, GFR 42. BNP was 738. The patient is now being admitted ICU. His CTA did suggest fluid collection in the pelvis. This will be addressed at a later time. He is covered with appropriate broad-spectrum antibiotics pending further evaluation. Dr. Elliott had seen him in last hospitalization for preoperative care. The patient had a mitral valve replacement in the past. He has a bioprosthetic valve in the mitral position in 2005. At that time, he had an echocardiogram that hospitalization. The patient was felt to be at increased risk, but he had a required operation. Dr. Elliott followed him postoperatively. ALLERGIES: PENICILLIN. SOCIAL HISTORY: Tobacco none. Alcohol, occasional beer. MEDICATIONS: Crestor, Protonix, furosemide, Zetia, carvedilol, aspirin, stool softeners, Tylenol, and Ultram. PAST MEDICAL HISTORY: Coronary artery disease, bioprosthetic mitral valve. Initially, started anticoagulation last hospitalization, hypertension, stable coronary artery disease without chest pain. PAST SURGICAL HISTORY: Open appendectomy in 1956, coronary artery bypass grafting with mitral valve replacement in 2005, bilateral total knee replacement in 2006, right shoulder exploration that they could not repair in 2006 and 2007, in 2013 Dr. Priest performed an EGD for bleeding duodenal ulcer noting a hiatal hernia. Colonoscopy at [facility] 10 to 12 years prior. REVIEW OF SYSTEMS: Noncontributory. PHYSICAL EXAMINATION: VITAL SIGNS: Blood pressure 100/70, respiratory rate 24. He is intubated currently. LUNGS: Clear to auscultation. Rhonchi base. CARDIAC: Regular rate and rhythm. ABDOMEN: Soft. Well-healed midline wound. No hernias. EXTREMITIES: Unremarkable. LABORATORY DATA: As noted above. ASSESSMENT AND PLAN: 1. Respiratory failure, etiology uncertain. Continue broad-spectrum antibiotics. Consult Pulmonary Medicine. 2. Prosthetic mitral valve. He was on Eliquis. We will have to discuss with the family. When he last took his Eliquis, we placed him Lovenox for now and consult Cardiology. 3. Stable coronary artery disease. 4. Questionable pelvic air-fluid density. We will evaluate with a daily CAT scan tomorrow pending his clinical status. Otherwise, continue antibiotics for now. The fluid collection in his pelvis may be postoperative. Await further assessment. Job ID: [id number]
[2018-12-06 17:50] LABS: Bilirubin Negative (Negative); Blood, Urine Negative (Negative); Clarity CLEAR (Clear); Glucose, Urine (Dipstick) Negative (Negative); Leukocyte Negative (Negative); Nitrite Negative (Negative); Protein, Urine (Dipstick) 30 mg/dL (Neg-Trace); Urobilinogen 0.2 mg/dL (0.2-1.0)
[2018-12-06 17:52] LABS: Bacteria/HPF None Seen HPF (None Seen); Pathc Cast-AUWi Flag 1.16 (0-2.49); RBC/HPF 0-3 HPF (0-3); Squamous Epithelial 0-3 HPF (0-3)
[2018-12-06 18:00] LABS: Hyaline Casts/LPF NONE SEEN LPF (0-3 Hyaline); Renal Epithelial None Seen HPF (0-3); Transitional Epithelial NONE SEEN HPF (0-3)
--- NOTE | 2018-12-06 18:34 | RAD ---
RADIOGRAPH CHEST 1 VIEW: Date: 12/06/18 Time: 1608 HOURS HISTORY: 88-year-old male status post central line placement. COMPARISON: 12/06/18 at 1513 hours. FINDINGS: There is a new left subclavian central line with distal tip overlying SVC. Endotracheal tube and NG t ube remain. The previously described mild pulmonary densities at bilateral lower lung zones, left gre ater than right, are again noted. There is a new small developing infiltrate-like density at the left mid lung zone. No pneumothorax is visualized, but this is supine positioning, which would be insensi tive for pneumothorax detection. IMPRESSION: 1. Left subclavian central venous catheter placement. 2. Recommend upright view to rule out pneumothorax. 3. Bibasilar infiltrates, left greater than right, unchanged. 4. Apparently new, developing small infiltrate in the left mid lung zone. TIFFANI [] POS: SUSAN
[2018-12-06] MEDS: Meropenem 2 GM, Admixture Fee 1 EACH in Sodium Chloride 0.9% 100 ML IVPB SCH (19:57)
[2018-12-06] MEDS ORDERED: Lactated Ringer's 500 ML IV SCH (20:15)
[2018-12-06] MEDS: Enoxaparin Sodium 40 MG/0.4 ML SYRINGE SC SCH (20:52)
[2018-12-06 21:14] LABS: Lactic Acid 1.2 mmol/L (0.5-2.2)
[2018-12-06 21:15] LABS: Anion Gap 11 mmol/L (10-20); Carbon Dioxide 18 mmol/L (23-31); Chloride 109 mmol/L (98-107); Sodium 136 mmol/L (136-145)
[2018-12-06 21:20] LABS: Potassium 2.2 mmol/L (3.5-5.1)
--- NOTE | 2018-12-06 22:05 | CON ---
DATE OF CONSULTATION: 12/06/2018 45 minutes critical care time. REASON FOR CONSULTATION: Acute respiratory failure and sepsis. HISTORY OF PRESENT ILLNESS: The patient is an 88-year-old male, who presented to Dr. De Jesus's office today for followup. He had been having abdominal pain and felt bad. This patient had just been in the hospital last week and discharged. According to operative notes, the patient had a laparotomy for a complete bowel obstruction. At the time of this dictation, the operative note is not on the chart. The patient was taken to Dr. De Jesus's office over to the ER where he was found to be hypotensive and in respiratory distress. He was intubated by the emergency room physician, placed on mechanical ventilation. A subclavian IV was placed on the left for the purpose of administering fluids. PAST MEDICAL HISTORY: 1. Recent bowel obstruction. 2. Coronary artery disease. 3. Prosthetic aortic valve, not requiring anticoagulation. 4. Hypertension. 5. Coronary artery disease. 6. Chronic kidney disease. PAST SURGICAL HISTORY: Appendectomy in 1955, coronary artery bypass graft surgery in 2005, bilateral total knee in 2006, right shoulder exploration in 2006. FAMILY MEDICAL HISTORY: Unremarkable. REVIEW OF SYSTEMS: Cannot be obtained at this time. MEDICATIONS: Full list of outpatient medications not available for review at this time. Previously had been taking; 1. Carvedilol. 2. Crestor. 3. Protonix. 4. Furosemide. 5. Zetia, but it is not clear to me if he is currently taking those medications. PHYSICAL EXAMINATION: VITAL SIGNS: His pulse is from 80 to 100, blood pressure about 100/56, respiratory rate 18. He is currently intubated and sedated. HEENT: Pupils are reactive. Sclerae anicteric. Oropharynx is clear. NECK: No JVD. LUNGS: Have wheezes bilaterally. CARDIOVASCULAR: S1, S2. Slightly tachycardic. ABDOMEN: He has a midline surgical wound below the umbilicus, which appears to be healing well. He has bruising around the wound. EXTREMITIES: No clubbing, cyanosis, or edema. LABORATORY DATA: PH 7.33, pCO2 of 34, and pO2 of 101 on SIMV rate 16, tidal volume 500, PEEP 5, pressure support 10, FiO2 of 60%. White blood cell count 23.4, hematocrit 37, platelet count 264. Sodium 136, potassium 2.7, chloride 108, CO2 of 17, BUN 11, creatinine 1.5, glucose 96, lactate 2.1, and magnesium 1.4. BNP 738. His CT showed some atelectasis versus infiltrate in both bases. He also had a 5 cm abscess present behind his bladder. His chest x-ray shows proper ET tube placement and the central line is difficult for me to see on the current film. ASSESSMENT: 1. Septic shock versus hypovolemia. 2. Abdominal abscess. 3. Acute respiratory failure requiring mechanical ventilation. 4. Bronchospasm. PLAN: The patient is being fluid resuscitated. He will be started on broad-spectrum IV antibiotics. His ventilator settings seem to be appropriate. He is on Protonix for GI prophylaxis, on enoxaparin for DVT prophylaxis. PROGNOSIS,: Guarded. Job ID: [id number]
[2018-12-07] MEDS: Potassium Chloride 40 MEQ in Lactated Ringer's 1,000 ML IV SCH ×3 (02:10→06:45)
[2018-12-07] MEDS: Meropenem 2 GM, Admixture Fee 1 EACH in Sodium Chloride 0.9% 100 ML IVPB SCH ×3 (02:10→17:24)
[2018-12-07 04:37] LABS: White Blood Cell (WBC) Count 59.3 thou/uL (4.8-10.8)
[2018-12-07 04:42] LABS: ALT (SGPT) 16 U/L (8-55); AST (SGOT) 27 U/L (5-34); Albumin 2.7 g/dL (3.4-4.8); Alkaline Phosphatase 70 U/L (40-150); Anion Gap 14 mmol/L (10-20); BUN (Urea Nitrogen) 14 mg/dL (8.4-25.7); Bilirubin, Total 0.7 mg/dL (0.2-1.2); Calc. Creatinine Clearance 35 mL/min (70-130); Calcium 7.4 mg/dL (7.8-10.44); Carbon Dioxide 16 mmol/L (23-31); Chloride 111 mmol/L (98-107); Estimated GFR-MDRD 31; Globulin 2.3 g/dL (2.4-3.5); Glucose 78 mg/dL (83-110); Potassium 3.2 mmol/L (3.5-5.1); Sodium 138 mmol/L (136-145)
[2018-12-07 05:00] LABS: Band 31 % (5-11); Hemoglobin 10.4 g/dL (14.0-18.0); Lymphocytes 5 % (21-51); MDiff Complete? YES; Mean Corpuscular HGB CONC 31.6 g/dL (32.0-36.0); Mean Corpuscular Hemoglobin 28.6 pg (27.0-31.0); Mean Corpuscular Volume 90.3 fL (78.0-98.0); Mean Platelet Volume 7.2 fL (7.4-10.4); Metamyelocyte 1 % (0-0); Monocytes 1 % (0-10); Neutrophil 61 % (42-75); Platelet Count 216 thou/uL (130-400); RBC Distribution Width 13.1 % (11.5-14.5); Reactive Lymphocytes 1 % (0-10); Red Blood Cell (RBC) Count 3.64 mill/uL (4.70-6.10)
[2018-12-07] MEDS: Propofol 1,000 MG/100 ML VIAL IV PRN ×3 (05:16→20:57)
[2018-12-07] MEDS: Norepinephrine 8 MG/0.9% NS 250 ML IVPB SCH ×3 (05:16→20:56)
[2018-12-07] MEDS ORDERED: Lactated Ringer's 1,000 ML IV SCH (06:45)
[2018-12-07 07:35] LABS: Actual Bicarbonate (HCO3a) 17.2 mEq/L (22-28); Base Excess (BEa) -8.4 mEq/L (-2.0 to +3.0); CO2 Tension 35.8 mmHg (35.0-45.0); Calcium, Ionized 1.08 mmol/L (1.12-1.30); Carboxyhemoglobin (COHb) 0.7 gm% (0.0-3.0); Hemoglobin (Hb) 10.6 g/dL (14.0-18.0); Potassium - ABG Lab 4.19 mmol/L (3.70-5.30)
[2018-12-07 07:36] LABS: Puncture Site RRA
[2018-12-07] MEDS ORDERED: Metoclopramide HCl 10 MG/2 ML VIAL IVP SCH (08:00)
--- NOTE | 2018-12-07 08:47 | RAD ---
CHEST 1 VIEW: Date: 12/07/18 HISTORY: Dyspnea. Follow-up. COMPARISON: 12/06/18. FINDINGS: Cardiac silhouette remains magnified and enlarged. Pulmonary vasculature is now more engorged with pa tchy areas of scattered parenchymal opacity otherwise similar in appearance to the prior study. Media stinum is midline. Endotracheal catheter tip now lies at the level of the aortic arch. Other lines an d tubes are unchanged in position. air sampling and monitoring leads overlie the chest. IMPRESSION: Slight interval worsening and radiographic appearance of pulmonary vascular congestion. POS: SUSAN
--- NOTE | 2018-12-07 08:57 | PRG ---
DATE OF SERVICE: 12/07/2018 SUBJECTIVE: Iban Dinh is intubated in ICU. He is awake, follows commands and seems appropriately interactive. OBJECTIVE: VITAL SIGNS: He was febrile overnight, 101.5 degrees, now 100.1 degrees this morning. Heart rate 81, and blood pressure 127/75. LUNGS: Rhonchi. CARDIAC: Regular rate and rhythm. ABDOMEN: Soft. Good bowel sounds. Nontender. Midline wound well healed. EXTREMITIES: Unremarkable. LABORATORY DATA: White count has risen from 23,000 on admission to 59,000; hemoglobin is 10.4 this morning; platelet count is 216,000. He has 31% bands. Sodium 138, potassium 3.2 (increased from 2.7 after potassium supplements), chloride 111, carbon dioxide 16, BUN 14, creatinine 2.02, GFR 31. ASSESSMENT AND PLAN: 1. Acute kidney injury secondary to sepsis. Continue hydration. Monitor. 2. Hypokalemia. Continue replacement. 3. Dehydration, severe secondary to poor oral intake and diarrhea at home. Continue hydration. 4. Sepsis. 5. CAT scan demonstrates pelvic fluid collection. This is only 5 cm retrovesicular. He is 10 days postoperatively, the 5 cm fluid collection in the small focus of gas could be a postoperative abscess, although no small-bowel resection was performed at the time of his operation 10 days ago. I have discussed with Dr. Fab Shi Close. The CAT scan yesterday was adequate and for this reason, we will cancel his CAT scan today. The pelvic fluid collection if persistent may need percutaneous drainage, but that will be difficult due to its location and small size. At this time, we will continue intravenous antibiotics, supportive care. Consider repeating his CAT scan next week with or without IV contrast pending acute kidney injury resolution and clinical course. 6. Respiratory failure. 7. Ten days status post laparotomy, release of adhesive band without small bowel resection for complete bowel obstruction. Job ID: [id number]
[2018-12-07] MEDS ORDERED: Prevnar 13-Val Conj/PF 0.5 ML SYRINGE IM ONE (09:00)
--- NOTE | 2018-12-07 09:17 | PRG ---
DATE OF SERVICE: 12/07/2018 TIME SPENT: 35 minutes critical time. SUBJECTIVE: The patient remains intubated on mechanical ventilation. He is requiring Levophed drip at the maximum rate. I am about to start him on vasopressin. He is awake and follows commands. OBJECTIVE: VITAL SIGNS: On exam, his temperature is 100.1 with a T-max of 101.5, pulse 75, blood pressure 127/75, O2 saturation 100%. HEENT: Remarkable for rhinophyma. NECK: No adenopathy. No JVD. LUNGS: Coarse breath sounds. CARDIAC: S1, S2. Slightly tachycardic. ABDOMEN: Midline inferior abdominal wound looks fairly clean. There is bruising around it. EXTREMITIES: Trace edema. LABORATORY DATA: Sodium 138, potassium 3.2, chloride 111, CO2 of 16, BUN 14, creatinine 2.0, and glucose 78. White blood cell count 59.3, hematocrit 32.9, and platelet count 216. PH of 7.30, pCO2 of 35, pO2 of 92. IMAGING STUDIES: His x-ray shows bilateral infiltrative changes worse than yesterday. ET tube is in good position. The left subclavian central line is in good position. ASSESSMENT: 1. Septic shock. 2. Bilateral pneumonia versus acute respiratory distress syndrome. 3. Small abdominal abscess. PLAN: 1. I will go ahead and increase his ventilatory rate since he does have metabolic acidosis and we need to compensate for that. We do not have the liberty of bicarbonate for infusion at this time. 2. Increase his antibiotic spectrum to include vancomycin since he was recently in the hospital and could have Staph. 3. Replace potassium. 4. I spoke with family at bedside. Job ID: [id number]
[2018-12-07] MEDS: Vasopressin 40 UNIT, Admixture Fee 1 EACH in Sodium Chloride 0.9% 100 ML IV SCH ×2 (09:55→20:58)
[2018-12-07] MEDS: Vancomycin HCl 1.5 GM in Sodium Chloride 0.9% 250 ML 300 ML IVPB SCH (09:55)
[2018-12-07] MEDS: Pantoprazole 40 MG VIAL IVP SCH (09:56)
[2018-12-07] MEDS: fentaNYL Citrate/PF 2,000 MCG in Sodium Chloride 0.9% 60 ML IV SCH (10:02)
--- NOTE | 2018-12-07 20:06 | CON ---
DATE OF CONSULTATION: HISTORY OF PRESENT ILLNESS: Iban Dinh is an 88-year-old white male, who has a history of bioprosthetic mitral valve and CABG in 2005. He was recently admitted in mid November with small bowel obstruction. He ultimately underwent surgery for this with lysis of adhesions. There was no bowel resection. He did have an ileus for a period of time after surgery, but ultimately he was discharged on December 02. Then on December 06, his family brought him to Dr. De Jesus's office, because he was becoming lethargic. He was hypotensive, taken to emergency room. He has been fluid resuscitated as well as intubated. He has been found to have a small pelvic fluid collection, possible abscess formation. The patient is sedated at this time, unable to give any history. PAST MEDICAL HISTORY: Upper GI bleed while on Xarelto and paroxysmal atrial fibrillation, although he was in atrial fibrillation all of the admission 1 to 2 weeks ago. Hypertension, hyperlipidemia, and chronic kidney disease. PAST SURGICAL HISTORY: Operations; tonsillectomy, CABG, bioprosthetic mitral valve replacement, appendectomy, bilateral total knee replacement, right shoulder surgery, and laparoscopy and lysis of adhesions recently. MEDICATIONS: 1. Eliquis 5 mg b.i.d. 2. Aspirin 81 daily. 3. Carvedilol 12.5 b.i.d. 4. Colchicine daily. 5. Zetia 10 mg daily. 6. Finasteride 5 mg daily. 7. Furosemide 40 mg q.a.m. 8. Lisinopril 5 daily. 9. Protonix 40 daily. 10. Crestor 20 mg daily. 11. Flomax. ALLERGIES: PENICILLIN. SOCIAL HISTORY: He does not smoke or drink. REVIEW OF SYSTEMS: Unobtainable. The patient on the ventilator. PHYSICAL EXAMINATION: VITAL SIGNS: Blood pressure 93/45 and pulse 62. HEENT: PERRL. NECK: Supple. CHEST: Clear. CARDIAC: S1 and S2 normal without any S3, S4, or murmurs. ABDOMEN: Occasional bowel sounds. No tenderness. EXTREMITIES: Revealed trace pretibial edema. NEUROLOGIC: The patient is sedated. LABORATORY DATA: EKG revealed atrial fibrillation with aberrantly conducted beats, left axis deviation, and left ventricular hypertrophy. White count 59,300, hemoglobin 10.4, hematocrit 32.9, and platelets 216,000. INR 1.5. A pH of 7.30 , pCO2 of 35.8, and pO2 of 92.0. Sodium 138, potassium 3.2, chloride 111, carbon dioxide 16, BUN 14, and creatinine 2.02. BNP 738.2. IMPRESSION: 1. Possible pelvic abscess. 2. Sepsis. 3. Status post laparoscopy with lysis of adhesions in mid to late November. 4. Status post bioprosthetic mitral valve and coronary artery bypass grafting. 5. Moderate aortic insufficiency. 6. Paroxysmal atrial fibrillation in the past. However, he is in atrial fibrillation all of the most recent admission. He was discharged back on Eliquis and is going to be seen again in the office in the near future for possible starting of an antiarrhythmic and then consideration of cardioversion. 7. Ischemic cardiomyopathy with ejection fraction of 35% to 40%. 8. Chronic kidney disease. 9. Positive family history. 10. History of gastrointestinal bleed with duodenal ulcer in January 2014 while on Xarelto. 11. Hypercholesterolemia. PLAN: The patient will be anticoagulated with Lovenox and Eliquis will be held at this time in case some type of surgical intervention is needed. The patient's rate is well controlled at this time. Job ID: [id number] [facility]
[2018-12-07] MEDS: Enoxaparin Sodium 40 MG/0.4 ML SYRINGE SC SCH (20:57)
[2018-12-08] MEDS: Meropenem 2 GM, Admixture Fee 1 EACH in Sodium Chloride 0.9% 100 ML IVPB SCH ×3 (02:05→17:45)
[2018-12-08] MEDS: Potassium Chloride 40 MEQ in Lactated Ringer's 1,000 ML IV SCH ×3 (02:05→05:53)
[2018-12-08 04:51] LABS: ALT (SGPT) 13 U/L (8-55); AST (SGOT) 23 U/L (5-34); Albumin 2.4 g/dL (3.4-4.8); Alkaline Phosphatase 106 U/L (40-150); Anion Gap 13 mmol/L (10-20); BUN (Urea Nitrogen) 17 mg/dL (8.4-25.7); Bilirubin, Total 0.6 mg/dL (0.2-1.2); Calc. Creatinine Clearance 39 mL/min (70-130); Calcium 7.6 mg/dL (7.8-10.44); Carbon Dioxide 17 mmol/L (23-31); Chloride 114 mmol/L (98-107); Estimated GFR-MDRD 36; Globulin 2.4 g/dL (2.4-3.5); Glucose 83 mg/dL (83-110); Potassium 4.2 mmol/L (3.5-5.1); Protein, Total 4.8 g/dL (5.8-8.1); Sodium 140 mmol/L (136-145)
[2018-12-08 05:13] LABS: Band 22 % (5-11); Hemoglobin 9.7 g/dL (14.0-18.0); Lymphocytes 2 % (21-51); MDiff Complete? YES; Mean Corpuscular HGB CONC 31.6 g/dL (32.0-36.0); Mean Corpuscular Hemoglobin 28.8 pg (27.0-31.0); Mean Platelet Volume 7.6 fL (7.4-10.4); Monocytes 3 % (0-10); Neutrophil 73 % (42-75); Platelet Count 156 thou/uL (130-400); Platelet Morphology Comment Appears Adequate; RBC Distribution Width 13.1 % (11.5-14.5); Red Blood Cell (RBC) Count 3.37 mill/uL (4.70-6.10); White Blood Cell (WBC) Count 39.2 thou/uL (4.8-10.8)
--- NOTE | 2018-12-08 07:50 | RAD ---
CHEST 1 VIEW: Date: 12/08/18 INDICATION: History of intubation. COMPARISON: Prior exam dated 12/07/18. FINDINGS: The patient is heavily rotated to the right, limiting exam. The left subclavian central venous cathet er, ET tube, and gastric catheter do not appear appreciably changed. Cardiomegaly persists. Pulmonary vascular congestion appears slightly improved. No definite effusion or pneumothorax is evident. IMPRESSION: Limited exam. Suggestion of some improvement in pulmonary vascular congestion. Continued follow-up is recommended. POS: BH
--- NOTE | 2018-12-08 08:00 | PDOC.CTH ---
Cardiology Progress Note - Subjective Pt continues to be intubated/sedated. On pressors for BP support. On Abx. - ROS not able to obtain ROS - Objective Vital Signs Temp Pulse Resp BP Pulse Ox 12/08/18 07:28 18 12/08/18 07:12 62 114/39 L 12/08/18 07:00 100.0 F H 12/08/18 06:00 18 12/08/18 04:00 18 12/08/18 02:16 60 12/08/18 02:15 57 L 18 100 12/08/18 02:00 18 12/08/18 00:00 99.9 F H 18 12/07/18 22:08 62 18 100 12/07/18 22:00 18 12/07/18 20:00 100.0 F H 20 100 Admit Weight 213 lb Weight 213 lb 2.992 oz 12/07/18 12/08/18 12/09/18 06:59 06:59 06:59 Intake Total 3800.7 4724.1 Output Total 610 940 75 Balance 3190.7 3784.1 -75 - Physical Examination Neck: no JVD present Lungs: CTA, unlabored respirations Heart: PMI normal Abdomen: NT/ND, soft Extremities: + femoral B - Labs Result Diagrams: 12/08/18 04:20 12/08/18 04:20 - Assessment/Plan CAD s/p CABG previous bioprosthetic MV PAF Ischemic CM CKD GI bleed on lovenox (NOAC dc) Continue Abx and pressors for BP support
[2018-12-08] MEDS: Norepinephrine 8 MG/0.9% NS 250 ML IVPB SCH (08:44)
[2018-12-08] MEDS: Vancomycin HCl 1.5 GM in Sodium Chloride 0.9% 250 ML 300 ML IVPB SCH (09:50)
[2018-12-08] MEDS: Pantoprazole 40 MG VIAL IVP SCH (09:51)
[2018-12-08] MEDS: fentaNYL Citrate/PF 2,000 MCG in Sodium Chloride 0.9% 60 ML IV SCH (10:33)
[2018-12-08] MEDS ORDERED: Vancomycin HCl 25 MG/ML Oral PER TUBE SCH (12:00)
--- NOTE | 2018-12-08 12:18 | PRG ---
DATE OF SERVICE: 12/08/2018 SUBJECTIVE: The patient is intubated, sedated. He is somewhat awake on the vent. He is doing little better per the nurse. We found that his C diff test came back positive for clostridial difficile infection. OBJECTIVE: VITAL SIGNS: Temperature is 100.0, pulse is 66, blood pressure 129/52. His urine output 940 yesterday. ABDOMEN: Soft, nontender. LABORATORY DATA: His white count has come down from 59,000 to 39,000. ASSESSMENT: Clostridium difficile colitis. PLAN: Continue vancomycin. Consult GI. Job ID: [id number]
[2018-12-08 13:06] LABS: Vancomycin, Trough 44.6 ug/mL
--- NOTE | 2018-12-08 13:43 | PRG ---
DATE OF SERVICE: 12/08/2018 SERVICE: Pulmonary Medicine. INTERVAL HISTORY: The patient is doing okay from respiratory standpoint. Breathing comfortably. There has been no interval change to his condition. Otherwise, he is on much less support on mechanical ventilator. He has cleared his inflammatory profile very nicely. PHYSICAL EXAMINATION: VITAL SIGNS: T-max 100.8. Pulse 58, blood pressure 127/74, respirations 16, and saturation 100% on 21% FiO2. GENERAL: The patient is intubated and sedated. HEENT: Normocephalic and atraumatic. Sclerae are white. Conjunctivae are pink. Oral mucosa is moist without lesions. LUNGS: Decent air entry. There is no rhonchi or crackles present. HEART: Normal rate, regular. ABDOMEN: Soft, nontender, and nondistended. Bowel sounds are positive. MUSCULOSKELETAL: No cyanosis or clubbing. There is no pitting in the bilateral lower extremities. NEUROLOGIC: Grossly nonfocal. LABORATORY DATA: WBC 39.2, hemoglobin 9.7, and platelets 156,000. Band count is falling to 22%. INR 1.5. PH 7.30, pCO2 of 35, PO2 of 92. Creatinine is downtrending to 1.81, bicarb 17, chloride 114, sodium 140. Liver function studies and lactate are unremarkable otherwise. Urinalysis is unremarkable. Vancomycin trough is 44, but this an erroneous laboratory as vancomycin was infusing immediately prior to this laboratory. It does not reflect a true trough. C diff antigen and toxin are positive. Blood cultures x2 and urine culture are negative. IMAGING: Chest x-ray demonstrates improvement in pulmonary vascular congestion. Endotracheal tube is in good position above the level of the edith. There is an enteric catheter coursing below the level of the diaphragm. There is a left-sided subclavian central venous catheter in good position. I do not appreciate a pneumothorax. There is very subtle interstitial and fine nodular changes, particularly in the left base, but no overt consolidating changes are appreciated. ASSESSMENT: 1. Septic shock. 2. Clostridium difficile colitis infection. 3. Abdominal abscess, possible. DISCUSSION AND PLAN: We will continue our supportive care including stress doses of steroids, pressors, and antibiotics. I will put the patient on a spontaneous breathing trial and consider him for extubation. He is clearing his acute kidney injury, and his bicarb is actually improving. Supportive measures will otherwise be continued. CRITICAL CARE TIME: 30 minutes. Job ID: [id number]
[2018-12-08] MEDS: Sodium Chloride 0.45% 1,000 ML IV SCH (14:52)
[2018-12-08] MEDS: metroNIDAZOLE 500 MG in Premix Bag 1 BAG IVPB SCH ×2 (14:56→22:51)
[2018-12-08] MEDS: Vancomycin HCl 25 MG/ML Oral PO SCH ×2 (17:44→23:23)
[2018-12-08] MEDS: Enoxaparin Sodium 40 MG/0.4 ML SYRINGE SC SCH (20:06)
--- NOTE | 2018-12-08 21:17 | CON ---
DATE OF CONSULTATION: 12/08/2018 REASON FOR CONSULT: Positive C. diff in the stool and 1 episode of diarrhea. HISTORY OF PRESENT ILLNESS: Mr. Dinh was admitted to the hospital on 12/06 and he presented to the emergency room with complaints of abdominal pain. Apparently a week prior, he had been in the hospital with small bowel obstruction and a laparotomy. He was having fever up to 102 at home. Apparently, the patient has been sent over to Dr. De Jesus's, where he is coming with symptoms of tachycardia, tachypnea, hypotension, and lethargy. In the emergency room, he had a CAT scan of the chest, abdomen, and pelvis, which showed some possible wall thickening in the rectum, diffuse ileus, small retrovesicular intrapelvic abscess with fluid and gas measuring 5 x 2 cm and no pulmonary embolus. The patient developed hypotension and respiratory distress, ultimately intubated and placed on pressors and treated with sepsis protocol. He was extubated earlier today. PAST MEDICAL HISTORY: Notable for previous bowel obstructions, most recently had a small bowel obstruction, but he also had a remote history of appendectomy in 195. He had an ischemic terminal ileum on his surgery last month, but with release of the obstructive band became necessary to resect. He has also had a previous prosthetic aortic valve placed in 2005. Knee replacement in 2006. Right shoulder exploration in 2006, 2007, and 2013. He had an EGD for duodenal ulcer and colonoscopy about 10 years ago. Past medical history is known for coronary artery disease, prosthetic aortic valve not requiring anticoagulation, hypertension, and stable coronary artery disease. HOME MEDICATIONS: 1. Crestor. 2. Carvedilol. 3. Protonix. 4. Furosemide. 5. Zetia. PRESENT MEDICATIONS: 1. Albuterol. 2. Ascorbic acid. 3. Lovenox subcu prophylaxis. 4. Fentanyl p.r.n. 5. DuoNeb p.r.n. 6. Magnesium oxide p.r.n. 7. Meropenem q.12 hours. 8. Zofran. 9. Protonix. 10. Thiamine. 11. Vancomycin 125 p.o. q.6 hours. 12. Vasopressin, weaned off. REVIEW OF SYSTEMS: The patient denies any history of diarrhea or rectal bleeding. Nurses have noted no bleeding or melena. He denies abdominal pain. He just got extubated, so he has not really eaten in the past several days. Nurses have noted no other issues. The patient is a little bit sleepy from his recent extubation and otherwise, denies any generalized pain or shortness of breath at this time, but cannot go into details with little bit sluggish and sleepy. PHYSICAL EXAMINATION: VITAL SIGNS: T-max 101 yesterday and 100 today, pulse 67, blood pressure 138/79, and respiratory rate 12. HEENT: He is nonicteric. NECK: Supple. LUNGS: Clear. ABDOMEN: Soft. It is protuberant. There is no rebound. No guarding. Bowel sounds are present. LABORATORY STUDIES: White count was 6.7 when he left on 12/01; he returned on 12/06/2018, it was 23,000; it was 59,000 yesterday; it is 39,000 today with 22% bands. INR was 1.5 on admission. A pH was 7.3 on admission. Sodium is 140, potassium 4.2, chloride 114, bicarb 17, and BUN and creatinine are 17 and 1.81 down from 14 and 2.02. Liver function tests are normal. Albumin is 2.4 and total protein is 4.8. Lipase on admission was 73. ASSESSMENT: 1. The patient recently in the hospital for partial bowel obstruction and lysis of adhesions. 2. Aortic valve replacement apparently. 3. Ischemic cardiomyopathy. 4. He has a small abscess on his pelvis CAT scan from admission. 5. Now he is recovering from sepsis, the etiology is unclear for the abscess. There was some thought maybe he had some pneumonia. He had a really high white blood cell count consistent with leukemoid reaction. Now, he has a stool for diarrhea that was obtained is positive for Clostridium difficile. Review of his CAT scan, there is no evidence of diffuse or severe colitis, so free abdominal fluid. I do not think that the Clostridium difficile is really a driving issue here. I would treat it; however, as he has positive toxin. RECOMMENDATIONS: Vancomycin 250 p.o. q.i.d. and I would start him on Flagyl IV in light of how elevated was it on presentation. These antibiotics are continued while he is on other antibiotics. Once he is off the other antibiotics, he can be on 2 weeks of vancomycin with 6 weeks of probiotics. If he would have recurrent diarrhea, then he would need a slow taper of vancomycin treatment. Job ID: [id number]
[2018-12-09] MEDS: Meropenem 2 GM, Admixture Fee 1 EACH in Sodium Chloride 0.9% 100 ML IVPB SCH (02:08)
[2018-12-09 04:03] LABS: Anion Gap 16 mmol/L (10-20); BUN (Urea Nitrogen) 18 mg/dL (8.4-25.7); Calc. Creatinine Clearance 46 mL/min (70-130); Calcium 8.2 mg/dL (7.8-10.44); Carbon Dioxide 16 mmol/L (23-31); Chloride 114 mmol/L (98-107); Estimated GFR-MDRD 43; Glucose 69 mg/dL (83-110); Magnesium 1.7 mg/dL (1.6-2.6); Phosphorus 2.1 mg/dL (2.3-4.7); Sodium 142 mmol/L (136-145)
[2018-12-09 04:18] LABS: Band 7 % (5-11); Hemoglobin 9.9 g/dL (14.0-18.0); Lymphocytes 3 % (21-51); MDiff Complete? YES; Mean Corpuscular HGB CONC 31.9 g/dL (32.0-36.0); Mean Platelet Volume 7.9 fL (7.4-10.4); Monocytes 3 % (0-10); Neutrophil 87 % (42-75); Platelet Count 153 thou/uL (130-400); RBC Distribution Width 13.6 % (11.5-14.5); Red Blood Cell (RBC) Count 3.42 mill/uL (4.70-6.10); White Blood Cell (WBC) Count 26.9 thou/uL (4.8-10.8)
[2018-12-09] MEDS: Vancomycin HCl 25 MG/ML Oral PO SCH ×4 (05:01→23:44)
[2018-12-09] MEDS ORDERED: predniSONE 20 MG TAB PO SCH (05:30)
[2018-12-09] MEDS ORDERED: Potassium Phosphate 15 MMOL in Sodium Chloride 0.9% 250 ML 250 ML IVPB SCH (05:30)
[2018-12-09] MEDS: Sodium Chloride 0.45% 1,000 ML IV SCH (05:36)
[2018-12-09] MEDS ORDERED: Magnesium 2 GM/50 ML 2 GM in Premix Bag 1 BAG IVPB SCH (05:45)
--- NOTE | 2018-12-09 05:56 | PRG ---
DATE OF SERVICE: 12/09/2018 SERVICE: Pulmonary Medicine. INTERVAL HISTORY: The patient is doing fairly well from respiratory standpoint. He has a little paradoxical movement of the diaphragm. He does have increasing work of breathing. He was a little excitable last night and had some issues with agitation. Otherwise, there were no significant events. PHYSICAL EXAMINATION: VITAL SIGNS: Afebrile with a T-max of 100.0, pulse 92, blood pressure 147/79, respirations 24, saturation 100% on 2 L nasal cannula. GENERAL: The patient is awake and alert, in no apparent distress. LUNGS: Decent air entry. Dependently, crackles are extensive. There is a slightly prolonged expiratory phase. There is minimal wheezing. No rhonchi are present. HEART: Normal rate, regular. ABDOMEN: Soft, nontender, and nondistended. Bowel sounds are positive. MUSCULOSKELETAL: No cyanosis or clubbing. There is 1+ pitting in the bilateral lower extremities. NEUROLOGIC: Grossly nonfocal. LABORATORY DATA: WBC is downtrending to 26.9, hemoglobin 9.9, platelets 153,000. Creatinine 1.53 and significantly improving. Chloride 114, sodium is uptrending to 142. Phosphorus 2.1, magnesium 1.2. Previous vancomycin trough was erroneous. Blood cultures x2 and urine culture are unremarkable. C diff antigen and toxin are both positive. ASSESSMENT: 1. Septic shock, resolved. 2. Clostridium difficile colitis infection. 3. Abdominal abscess, possible. DISCUSSION AND PLAN: The patient has had a significant improvement in symptoms. We will continue our antibiotics as directed for C diff. We will also continue his parenteral antibiotic for a collection of fluid that could be related to an abscess. For the agitation, we will schedule dose of Seroquel in the evening. Lasix will be initiated today and tomorrow morning for two doses. Magnesium, phosphorus, and potassium will all be provided to prevent severe electrolyte abnormalities. I will introduce a low dose of free water to prevent hypernatremia through time. Pulmonary Critical Care will continue to follow very closely. Unless his breathing settles down a little bit, keep him in the ICU for an additional 24 hours. Job ID: [id number]
[2018-12-09] MEDS ORDERED: Furosemide 40 MG/4 ML VIAL SLOW IVP SCH ×3 (06:00→16:30)
[2018-12-09] MEDS: Furosemide 40 MG/4 ML VIAL SLOW IVP SCH (06:47)
[2018-12-09] MEDS: Pantoprazole 40 MG VIAL IVP SCH (08:34)
[2018-12-09] MEDS: Saccharomyces boulardii 250 MG CAP PO SCH (08:34)
[2018-12-09] MEDS: metroNIDAZOLE 500 MG in Premix Bag 1 BAG IVPB SCH ×3 (08:34→23:44)
--- NOTE | 2018-12-09 08:40 | PDOC.CTH ---
Cardiology Progress Note - Subjective Pt extubated Off pressors. More stable today. Pt does not feel well but better today vs yesterday - Objective Vital Signs Temp Pulse Resp Pulse Ox 12/09/18 07:29 89 23 H 12/09/18 04:00 99.2 F 100 12/09/18 00:04 76 21 H 100 12/09/18 00:00 99.9 F H Admit Weight 213 lb Weight 213 lb 2.992 oz 12/08/18 12/09/18 12/10/18 06:59 06:59 06:59 Intake Total 4724.1 3860.3 Output Total 940 1890 1500 Balance 3784.1 1970.3 -1500 - Physical Examination General/Neuro: alert & oriented x3, NAD Neck: carotid US brisk, no JVD present Lungs: CTA, unlabored respirations Heart: PMI normal, RRR Abdomen: NT/ND, soft Extremities: + femoral B - Labs Result Diagrams: 12/09/18 03:14 12/09/18 03:14 - Assessment/Plan CAD s/p CABG previous bioprosthetic MV PAF Ischemic CM CKD GI bleed Septic shock C. Dificile Extubated On Abx off pressors Hoild CV meds as pt stabilizes off pressors Keep in ICU overnight
--- NOTE | 2018-12-09 10:12 | PRG ---
DATE OF SERVICE: 12/09/2018 SUBJECTIVE: The patient reports he is feeling better today. He has been extubated, still has some abdominal discomfort. He had a small bowel movement, passing some gas. He developed some fluid overload and was having some difficulty breathing this morning, but after Lasix had good results and feels better. OBJECTIVE: VITAL SIGNS: Temperature 99.2, pulse 89, and blood pressure 151/75. He is awake, alert, in no apparent distress. HEENT: Unremarkable. LUNGS: Clear. HEART: Regular rate and rhythm. ABDOMEN: Somewhat distended. There are rare bowel sounds. Minimal tenderness. Good urine output. LABORATORY DATA: White count is 26.9, down from 39. H and H of 9.9 and 31, platelet count of 153. Electrolytes; his creatinine is 1.5, which is improved and CO2 of 16. ASSESSMENT: Clostridial difficile colitis, improving. PLAN: Continue therapy. Job ID: [id number]
[2018-12-09] MEDS: Dextrose 5% in Water 1,000 ML IV SCH (13:11)
[2018-12-09] MEDS ORDERED: Furosemide 20 MG/2 ML VIAL SLOW IVP SCH (16:30)
--- NOTE | 2018-12-09 17:24 | PRG ---
DATE OF SERVICE: 12/09/2018 SUBJECTIVE: Mr. Dinh was moved to the floor. He is having loose stools fairly frequently. He is still on oxygen, but feels that he is breathing okay. His son wonders if he really has pneumonia. The patient does have coughing. The patient's family says at home, he was just feeling bad and not doing well, but was not having a problem with cough or diarrhea. He is eating a little bit. He just does not have much of an appetite yet he states. MEDICATIONS: 1. DuoNeb. 2. Ascorbic acid. 3. Lovenox. 4. D5W at 50. 5. Lasix 40 each day. 6. Metronidazole 500 t.i.d. 7. Zofran p.r.n. 8. Protonix. 9. Prednisone 40. 10. Seroquel. 11. Florastor. 12. Thiamine. 13. Vancomycin 250 p.o. q.6 hours. OBJECTIVE: GENERAL: He is resting in bed. His abdomen is a little protuberant. VITAL SIGNS: Temperature is 98, pulse 86, and blood pressure is 153/82. LUNGS: Coarse rhonchi. Some upper airway sounds. HEART: Regular rate and rhythm. ABDOMEN: Protuberant, but not tender. Bowel sounds are quiescent. LABORATORY DATA: White count 26.9, hemoglobin is 9.9, platelet count is 153, 87% bands, and neutrophils down to 7%. Sodium 142, potassium 4, BUN and creatinine 18 and 1.53 down from 14 and 2.02, phosphorus is 2.1, magnesium is 1.7, and albumin is 2.4 yesterday. ASSESSMENT: 1. Clostridial difficile colitis, [id number] with this elevated leukocyte count. His abdomen was not impressive on CAT scan with no overt evidence of thickened bowel loops or colonic distention or free fluid. 2. Possible overlying pneumonia. 3. Recent surgery for partial bowel obstruction last week. RECOMMENDATIONS: 1. Continue IV Flagyl, p.o. vancomycin, and probiotics. We would treat for 2 weeks beyond whatever time period his pneumonia should be treated for and then he can do a 6-week taper of vancomycin. 2. We will continue to follow along with you. We would check electrolytes, magnesium, and phosphorus again tomorrow. 3. Low phosphorus from today was already replaced. Job ID: [id number]
[2018-12-09] MEDS: Enoxaparin Sodium 40 MG/0.4 ML SYRINGE SC SCH (20:27)
[2018-12-10 06:11] LABS: #Lymphocytes 0.6 thou/uL (1.20-3.40); #Monocytes 0.8 thou/uL (0.11-0.59); #Neutrophils 12.2 thou/uL (1.40-6.50); %Basophils 0.1 % (0.0-1.0); %Lymphocytes 4.5 % (21.0-51.0); %Neutrophils 89.4 % (42.0-75.0); Hemoglobin 9.6 g/dL (14.0-18.0); Mean Corpuscular HGB CONC 32.4 g/dL (32.0-36.0); Mean Corpuscular Hemoglobin 29.2 pg (27.0-31.0); Mean Corpuscular Volume 90.1 fL (78.0-98.0); Mean Platelet Volume 7.9 fL (7.4-10.4); Platelet Count 134 thou/uL (130-400); RBC Distribution Width 13.4 % (11.5-14.5); Red Blood Cell (RBC) Count 3.29 mill/uL (4.70-6.10); White Blood Cell (WBC) Count 13.6 thou/uL (4.8-10.8)
[2018-12-10] MEDS: Vancomycin HCl 25 MG/ML Oral PO SCH ×4 (06:26→23:45)
[2018-12-10] MEDS: Furosemide 40 MG/4 ML VIAL SLOW IVP SCH (06:26)
[2018-12-10 06:29] LABS: ALT (SGPT) 14 U/L (8-55); AST (SGOT) 25 U/L (5-34); Albumin 2.6 g/dL (3.4-4.8); Alkaline Phosphatase 82 U/L (40-150); Anion Gap 13 mmol/L (10-20); BUN (Urea Nitrogen) 19 mg/dL (8.4-25.7); Bilirubin, Total 0.8 mg/dL (0.2-1.2); Calc. Creatinine Clearance 55 mL/min (70-130); Calcium 8.4 mg/dL (7.8-10.44); Carbon Dioxide 19 mmol/L (23-31); Chloride 112 mmol/L (98-107); Estimated GFR-MDRD 48; Globulin 2.5 g/dL (2.4-3.5); Glucose 126 mg/dL (83-110); Magnesium 1.8 mg/dL (1.6-2.6); Potassium 3.5 mmol/L (3.5-5.1); Protein, Total 5.1 g/dL (5.8-8.1); Sodium 140 mmol/L (136-145)
[2018-12-10 06:38] LABS: Phosphorus 2.6 mg/dL (2.3-4.7)
[2018-12-10] MEDS: Pantoprazole 40 MG VIAL IVP SCH (08:06)
[2018-12-10] MEDS: Saccharomyces boulardii 250 MG CAP PO SCH (08:07)
[2018-12-10] MEDS: predniSONE 20 MG TAB PO SCH (08:07)
[2018-12-10] MEDS: metroNIDAZOLE 500 MG in Premix Bag 1 BAG IVPB SCH ×3 (08:08→22:30)
--- NOTE | 2018-12-10 08:52 | PRG ---
DATE OF SERVICE: 12/10/2018 SUBJECTIVE: The patient is doing reasonably well. He was extubated over the weekend. He is now out on the telemetry unit. OBJECTIVE: VITAL SIGNS: Temperature 97.7, pulse 80, respirations 20, O2 saturation 96% on 2 L, blood pressure 157/90. HEENT: Unremarkable. CHEST: Coarse rhonchi anteriorly. CARDIAC: S1, S2. Regular. ABDOMEN: Soft. EXTREMITIES: No edema. LABORATORY DATA: White count is 13.6, hematocrit 29.7, and platelet count 134. Sodium 140, potassium 3.5, chloride 112, CO2 of 19, BUN 19, creatinine 1.4, and glucose 126. His stool was positive for C diff toxin. ASSESSMENT: 1. Clostridium difficile colitis. 2. Acute respiratory distress syndrome, which improved dramatically after treatment of his underlying sepsis. Based on what I see on the scan, I doubt that this was pneumonia. PLAN: The patient is continuing oral vancomycin and IV Flagyl for his C diff. His prednisone will continue for another couple days and then stop. His vitamin C and thiamine will stop after tomorrow. He needs to initiate physical therapy. Job ID: [id number]
--- NOTE | 2018-12-10 14:36 | PRG ---
DATE OF SERVICE: 12/10/2018 SUBJECTIVE: Mr. Dinh is being fed by his family. He is getting a little bit appetite. His family notes that he was a little bit confused last night, but he seems better today. He admits the same. He notes he is having less diarrhea, but it has not gone. MEDICATIONS: 1. Prednisone. 2. Protonix. 3. He is on saccharomyces boulardii. 4. Thiamine. 5. Oral vancomycin. 6. IV Flagyl. 7. Other antibiotics have been discontinued. 8. He remains on DVT prophylaxis with Lovenox. OBJECTIVE: VITAL SIGNS: Temperature is 97.7. His highest temperature in last 24 hours is 99.9 yesterday early in the morning. GENERAL: He is alert and oriented. LUNGS: Clear. ABDOMEN: Protuberant still, but softer. Bowel sounds are positive. LABORATORY DATA: Sodium 140, potassium 3.5, chloride 112, and bicarb 19. BUN and creatinine are 19 and 1.4. These continue to improve. Magnesium 1.8. Phosphorus 2.1 yesterday and 2.6 today. ASSESSMENT: 1. Severe Clostridium difficile colitis, improving. His leukocytosis is improved with a white count going down from 50,000 on the 1st, 39 on the 2nd, 26 yesterday and today 13; hemoglobin stable at 9.6. 2. Possible respiratory infection on admission has been ruled out and broad-spectrum antibiotics were stopped. PLAN: Continue IV Flagyl and p.o. vancomycin for few more days. I suspect that he will need to go to a swing unit or rehab. At that time, I would treat him with 2 weeks of vancomycin and then a 6-week taper of vancomycin. Job ID: [id number]
--- NOTE | 2018-12-10 14:43 | PRG ---
DATE OF SERVICE: 12/10/2018 SUBJECTIVE: Mr. Dinh has been transferred out of ICU to telemetry. He has much improved, extubated. Mental status is improved. Vital signs were more normal. C. diff was positive for antigen and toxin. He is on Vancocin p.o. Dr. Wylie, gastroenterology has seen him and recommendations for oral Vancocin and probiotics acknowledged. Currently, he is on metronidazole IV and Vancocin p.o. Other antibiotics have been appropriately discontinued. He is on prednisone 40 mg p.o. a.m. ordered by Pulmonary. Dr. Gillespie has seen him this morning and his impression is that the patient had adult respiratory distress syndrome improved dramatically after treatment of his underlying sepsis unlikely a pneumonia. He continues on oral Vancocin and IV Flagyl for C. diff colitis. The patient had a pelvic fluid collection on CAT scan of abdomen and pelvis on admission. The patient initially presented with a bowel obstruction, adhesive band. Bowel resection was not undertaken. I think it is unlikely he has a true pelvic abscess and do not think he needs repeat imaging for this. His white count has markedly improved from 23,000 to 59,000 on admission, now 13,000. Left shift has resolved. Hemoglobin 9.6. Acute kidney injury is remarkably improved with BUN 19. Creatinine has fallen from 2 to 1.4. The patient is alert and interactive. Family reports his mental status is not at baseline. His CT scan on admission revealed no acute changes and he does not have any neurological focal deficit. OBJECTIVE: VITAL SIGNS: Heart rate 79, respiratory rate 16, blood pressure 137/64. LUNGS: Clear to auscultation. CARDIAC: Rhythm without murmur or gallop. ABDOMEN: Soft, nontender. Midline wound is well healed. EXTREMITIES: Unremarkable. LABORATORY DATA: Blood cultures are negative to date. C. diff positive antigen and toxin. ASSESSMENT AND PLAN: 1. Clostridium difficile colitis, severe. Continue IV Flagyl and p.o. Vancocin. Avoid other intravenous antibiotics. 2. Acute kidney injury, markedly improved with hydration. Continue with Lovenox today. 3. Severe deconditioning. Physical Therapy consult. He needs to be up in a chair 2 to 3 times a day. Rehab consult will be submitted. The family is interested in a swing bed in [place], whichever is appropriate. Job ID: [id number]
[2018-12-10] MEDS: Dextrose 5% in Water 1,000 ML IV SCH (15:05)
[2018-12-10] MEDS: Carvedilol 3.125 MG TAB PO SCH (18:03)
[2018-12-10] MEDS ORDERED: Non-Formulary Item 1 EACH (Carvedilol [Coreg] 12.5 MG) PO SCH (21:00)
[2018-12-10] MEDS ORDERED: Carvedilol 6.25 MG TAB PO SCH (21:00)
[2018-12-10] MEDS: Apixaban 5 MG TAB PO SCH (21:36)
[2018-12-11] MEDS: Furosemide 40 MG/4 ML VIAL SLOW IVP SCH (06:09)
[2018-12-11] MEDS: Vancomycin HCl 25 MG/ML Oral PO SCH ×3 (06:09→17:41)
[2018-12-11 06:34] LABS: Anion Gap 14 mmol/L (10-20); BUN (Urea Nitrogen) 18 mg/dL (8.4-25.7); Calc. Creatinine Clearance 61 mL/min (70-130); Calcium 8.4 mg/dL (7.8-10.44); Carbon Dioxide 21 mmol/L (23-31); Chloride 110 mmol/L (98-107); Estimated GFR-MDRD 57; Glucose 137 mg/dL (83-110); Potassium 3.5 mmol/L (3.5-5.1); Sodium 141 mmol/L (136-145)
[2018-12-11] MEDS ORDERED: Aspirin 325 mg Enteric Coated Tablet PO SCH (09:00)
[2018-12-11] MEDS ORDERED: Colchicine 0.6 MG TAB PO SCH ×2 (09:00)
[2018-12-11] MEDS ORDERED: Acetaminophen/Codeine 30-300mg Tablet PO SCH ×2 (09:00)
[2018-12-11] MEDS ORDERED: Ezetimibe 10 MG TAB PO SCH (09:00)
[2018-12-11] MEDS: Carvedilol 3.125 MG TAB PO SCH (09:40)
[2018-12-11] MEDS: Finasteride 5 MG TAB PO SCH (09:47)
[2018-12-11] MEDS: predniSONE 20 MG TAB PO SCH (09:47)
[2018-12-11] MEDS: Tamsulosin HCl 0.4 MG CAP PO SCH (09:48)
[2018-12-11] MEDS: Saccharomyces boulardii 250 MG CAP PO SCH (09:48)
[2018-12-11] MEDS: Ezetimibe 10 MG TAB PO SCH (09:49)
[2018-12-11] MEDS: Lisinopril 5 MG TAB PO SCH (09:50)
[2018-12-11] MEDS: Apixaban 5 MG TAB PO SCH ×2 (09:51→20:45)
[2018-12-11] MEDS: metroNIDAZOLE 500 MG in Premix Bag 1 BAG IVPB SCH ×2 (09:57→14:59)
--- NOTE | 2018-12-11 09:57 | PRG ---
DATE OF SERVICE: 12/11/2018 SUBJECTIVE: Mr. Dinh is up in a chair. He is in much better shape. He has no complaints of shortness of breath. He does have a dry cough. OBJECTIVE: VITAL SIGNS: Temperature is 98.6, pulse is 77, respirations 20, O2 saturation 98% on 2 L nasal cannula, and blood pressure 137/80. HEENT: Unremarkable. NECK: No JVD. LUNGS: Clear anteriorly. CARDIAC: S1 and S2, regular. ABDOMEN: Soft and nontender. EXTREMITIES: No edema. LABORATORY DATA: Sodium 141, potassium 3.5, chloride 110, CO2 of 21, BUN 18, creatinine 1.2, and glucose 137. ASSESSMENT: 1. Clostridium difficile colitis with symptomatic improvement. 2. Abdominal abscess. 3. Status post acute respiratory distress syndrome, requiring mechanical ventilation. PLAN: Right now, he is solely receiving treatment for C diff. His pulmonary status looks stable. His vitamin C will be stopped after today. Increase activity as tolerated. Job ID: [id number]
[2018-12-11] MEDS ORDERED: Carvedilol 6.25 MG TAB PO SCH (10:00)
[2018-12-11] MEDS: Rosuvastatin 20 MG TAB PO SCH (10:23)
[2018-12-11] MEDS ORDERED: Acetaminophen 500 MG TAB PO PRN (16:29)
[2018-12-11] MEDS ORDERED: Colchicine 0.6 MG TAB PO PRN (16:29)
[2018-12-11] MEDS ORDERED: traMADol HCl 50 MG TAB PO PRN ×2 (16:29)
--- NOTE | 2018-12-11 16:46 | PRG ---
DATE OF SERVICE: 12/11/2018 SUBJECTIVE: Iban Dinh is doing better today. Mental status is improved. His family agrees. OBJECTIVE: VITAL SIGNS: Temperature 97.7 degrees, heart rate 67, and blood pressure 116/75. White count yesterday was 13.6, down from 59,000. Hemoglobin is 9.6, it was not rechecked today. Basic metabolic profile is normal today. LUNGS: Clear to auscultation. CARDIAC: Regular rate and rhythm without murmur or gallop. ABDOMEN: Soft, nontender. EXTREMITIES: Unremarkable. ASSESSMENT AND PLAN: 1. The patient is doing well. He has poor IV access. I would leave his central line and plan removal prior to transfer to swing bed at [facility]. We are awaiting insurance approval. The patient will be transferred to swing bed at [facility] anytime. We will discontinue his IV ascorbic acid, change his colchicine to p.r.n. Continue Vancocin p.o. q.i.d. for 2 weeks, t.i.d. for 2 weeks, b.i.d. for a week, daily for a week, and every other day for a week per Dr. Wylie. He will be on probiotics. 2. Sepsis, resolved. Job ID: [id number]
[2018-12-11] MEDS: Carvedilol 6.25 MG TAB PO SCH (17:41)
[2018-12-12] MEDS: Vancomycin HCl 25 MG/ML Oral PO SCH ×3 (00:46→11:59)
[2018-12-12] MEDS: predniSONE 20 MG TAB PO SCH (08:27)
[2018-12-12] MEDS: Carvedilol 6.25 MG TAB PO SCH (08:27)
[2018-12-12] MEDS ORDERED: Colchicine 0.6 MG TAB PO SCH (09:00)
[2018-12-12] MEDS ORDERED: Aspirin 81 mg Enteric Coated Tablet PO SCH (09:00)
[2018-12-12] MEDS: Rosuvastatin 20 MG TAB PO SCH (10:04)
[2018-12-12] MEDS: Ezetimibe 10 MG TAB PO SCH (10:05)
[2018-12-12] MEDS: Lisinopril 5 MG TAB PO SCH (10:05)
[2018-12-12] MEDS: Apixaban 5 MG TAB PO SCH (10:05)
[2018-12-12] MEDS: Finasteride 5 MG TAB PO SCH (10:05)
[2018-12-12] MEDS: Tamsulosin HCl 0.4 MG CAP PO SCH (10:06)
[2018-12-12] MEDS: Saccharomyces boulardii 250 MG CAP PO SCH (10:06)
[2018-12-12 10:17] VITALS: BMI 30.5
--- NOTE | 2018-12-12 12:03 | PRG ---
DATE OF SERVICE: 12/12/2018 SUBJECTIVE: He feels fairly decent. He had no acute complaints. OBJECTIVE: VITAL SIGNS: Temperature is 98.1, pulse 85, respirations 18, and O2 saturation 94% on room air. HEENT: Unremarkable. NECK: No adenopathy. No JVD. CHEST: Clear anteriorly except for few wheezes in the left base. CARDIAC: S1 and S2. Regular. ABDOMEN: Soft. EXTREMITIES: No edema. ASSESSMENT: 1. Status post septic shock. 2. Status post acute respiratory failure. 3. Clostridium difficile colitis. PLAN: He is continuing care for the C. diff. His respiratory status seems to be doing well on nebs. No further recommendations at this time. Job ID: [id number]
--- NOTE | 2018-12-12 12:19 | PRG ---
DATE OF SERVICE: SUBJECTIVE: Iban Dinh is actually doing well today. He is eating better. OBJECTIVE: VITAL SIGNS: Blood pressure 140/85, heart rate 81. LUNGS: Clear to auscultation. CARDIAC: Regular rate and rhythm without murmur or gallop. ABDOMEN: Soft, nontender. Midline wound well healed. EXTREMITIES: Unremarkable. GI: Minimal diarrhea. ASSESSMENT AND PLAN: Clostridium difficile colitis, improving with antibiotics orally. I have discontinue the Flagyl. The patient is ready to go to [facility] for reconditioning. I have talked to Dr. Wylie. The patient should be on Vancocin 250 p.o. q.i.d. for 2 weeks, 250 p.o. t.i.d. for 1 week, 250 mg p.o. b.i.d. for a week, 250 p.o. daily for a week, 250 p.o. q. other day for a week and then discontinue. He should continue probiotics for the duration. The patient is ready to transfer to [facility] whenever accepted. Central line will be discontinued on transfer. Job ID: [id number]
[2018-12-12 16:11] VITALS: BP 150/82; TEMP 97.7
--- NOTE | 2018-12-13 07:50 | DIS ---
DATE OF ADMISSION: 12/06/2018 DATE OF DISCHARGE: 12/12/2018 Transferred to [facility], 12/12/2018 or 12/13/2018. DISCHARGE DIAGNOSES: 1. Clostridium difficile colitis, positive toxin and antigen, diarrhea and dehydration. 2. Sepsis. 3. Respiratory failure requiring mechanical ventilation. 4. Bronchospasm. 5. Chronic kidney disease. 6. Coronary artery disease. 7. 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 8. Recent laparotomy for bowel obstruction. CONSULTATIONS: 1. Dr. Gillespie, Pulmonary Medicine. 2. Dr. Mcallister for his chronic atrial fibrillation, on anticoagulation, on Eliquis. 3. Dr. Chaves, Critical Care. DISCHARGE PLAN: [facility] per family's request for reconditioning. HISTORY: An 88-year-old male patient, recently presented with a complete bowel obstruction requiring laparotomy, release of adhesive band and bowel resection, not required bowel regain viability. He did well and after this on 11/27/2018 operation, and he was discharged home 12/02/2018. He called my office on the day of admission and was taken to the emergency room, where he was noted to be hypotensive and tachypneic with mental status changes and soon after arrival in the emergency room, he required intubation, ventilation, fluid resuscitation along with antibiotics. CTA performed was negative for dissection of pulmonary embolus. A CT scan of his abdomen and pelvis suggested a fluid collection in his pelvis with small amount of air. His abdomen itself was soft and benign. He was admitted to the ICU and evaluated. Clostridium difficile studies reveal positive antigen and toxin. It was felt he probably did not have pneumonia. Once his Clostridium difficile positive status acknowledged, his IV antibiotics discontinued. It was felt that the pelvic findings on the CAT scan was probably not an abscess and he was treated with Flagyl IV and Vancocin p.o. and he tolerated his diet. After extubation, Flagyl IV was discontinued. Dr. Wylie, Gastroenterology, saw him and recommendation is for Vancocin p.o. 250 q.i.d. for 2 weeks, t.i.d. for a week, b.i.d. for a week, daily for a week, and then every other day for a week with probiotics along and well as resuming his anticoagulation. Dr. Mcallister saw him. The patient was monitored on ICU in telemetry preoperatively. He resumed his Eliquis. He has been discharged home for his atrial fibrillation. He has been discharged to rehab for reconditioning. At this time, resuming his routine medications along with the Vancocin. He will follow up in my office in 3 to [address] Wylie' office in 3 to [address] Mcallister in the next few months. Job ID: [id number]
--- NOTE | 2018-12-13 08:22 | PRG ---
DATE OF SERVICE: 12/11/2018 SUBJECTIVE: Mr. Dinh is resting in bed. He is having less diarrhea. No pain. Nurses report he has been doing well and eating better. Dr. De Jesus did discontinue antibiotics other than the vancomycin and Flagyl and we talked about discontinuing the Flagyl today and continue on p.o. vancomycin. OBJECTIVE: VITAL SIGNS: Temperature 98.6, pulse 78, and blood pressure 120/58. LUNGS: Clear. HEART: Regular rate and rhythm. ABDOMEN: Much softer. Nontender. LABORATORY DATA: None. Chemistry, electrolytes normal. BUN and creatinine are 18 and 1.21. ASSESSMENT: 1. Severe Clostridium difficile colitis, he is off antibiotics and probably never had pneumonia. Clostridium difficile colitis improving, likely cause of septic shock. 2. Septic shock, resolved. RECOMMENDATIONS: 1. Probiotics for 3 months. 2. Vancomycin 250 mg p.o. q.i.d. for 14 days, then t.i.d. for a week, then b.i.d. for a week, then once a day for a week, then 1 dose every other day for 7 doses, and then finally 1 dose every third day for 7 doses. Discussed with family the risks of possible recurrence. If he has any signs of recurrence, we could probably consider proceeding more acutely with fecal transplant after calming down of the initial disease. Job ID: [id number]
== END 2018-12-12 17:05 | disposition swing bed (61) | DRG 871 ==
LOC: ERS 14:54 → CCU 16:16 → 2SE 12-09 12:17
PROVIDERS: ADMIT Specialist; ATTEND Specialist
PROC: 5A1945Z Respiratory Ventilation, 24-96 Consecutive Hours (ICD-10-PCS; principal; 2018-12-06)
PROC: 0BH17EZ Insertion of Endotracheal Airway into Trachea, Via Natural or Artificial Opening (ICD-10-PCS; 2018-12-06)
PROC: 02HV33Z Insertion of Infusion Device into Superior Vena Cava, Percutaneous Approach (ICD-10-PCS; 2018-12-06)
DX: A41.9 Sepsis, unspecified organism (principal); R65.21 Severe sepsis with septic shock; J96.00 Acute respiratory failure, unspecified whether with hypoxia or hypercapnia; A04.72 Enterocolitis due to Clostridium difficile, not specified as recurrent; N17.9 Acute kidney failure, unspecified; E87.2 Acidosis; E86.0 Dehydration; I25.5 Ischemic cardiomyopathy; E87.6 Hypokalemia; I25.10 Atherosclerotic heart disease of native coronary artery without angina pectoris; I12.9 Hypertensive chronic kidney disease with stage 1 through stage 4 chronic kidney disease, or unspecified chronic kidney disease; N18.9 Chronic kidney disease, unspecified; J98.01 Acute bronchospasm; E78.5 Hyperlipidemia, unspecified; I48.0 Paroxysmal atrial fibrillation; Z88.0 Allergy status to penicillin; Z79.01 Long term (current) use of anticoagulants; Z79.82 Long term (current) use of aspirin; Z79.899 Other long term (current) drug therapy; Z95.2 Presence of prosthetic heart valve; Z95.1 Presence of aortocoronary bypass graft; Z96.653 Presence of artificial knee joint, bilateral
CPT/HCPCS: 31500; 36415; 36416; 36556; 51702; 70450; 71045; 71275; 74177; 80048; 80053; 80202; 81003; 81015; 82805; 83605; 83690; 83735; 83880; 84100; 85025; 85610; 85730; 87040; 87086; 87324; 87449; 87493; 93005; 94002; 94003; 94640; 96361; 96365; 96366; 96368; 96375; 96376; C9113; J0692; J1580; J1650; J1940; J2185; J2250; J2704; J2765; J3010; J3370; J3411; J3475; J3480; J7050; J7120; J7506; J7620; Q9966

== ENCOUNTER 2020-04-08 07:47 | Outpatient (CLI) | payer MEDICARE, OTHER ==
--- NOTE | 2020-04-08 14:49 | RAD ---
PA AND LATERAL VIEWS CHEST: HISTORY: Preoperative evaluation. COMPARISON: 12/08/2018. FINDINGS: Changes of median sternotomy are again seen. The heart size is normal. The aorta is tortuous. The lungs are expanded without lobar consolidation, pneumothoraces, or pleural effusions. There are dege nerative changes in the spine. There is compression of the lower thoracic vertebral body which was a lso seen on 12/01/2018. IMPRESSION: No radiographic evidence of acute cardiopulmonary process. POS: [facility]
[2020-04-08 15:18] LABS: ALT (SGPT) 15 U/L (8-55); AST (SGOT) 18 U/L (5-34); Albumin 3.9 g/dL (3.4-4.8); Alkaline Phosphatase 152 U/L (40-110); Anion Gap 12 mmol/L (10-20); BUN (Urea Nitrogen) 20 mg/dL (8.4-25.7); Bilirubin, Total 1.4 mg/dL (0.2-1.2); Calc. Creatinine Clearance 0 mL/min (70-130); Calcium 9.1 mg/dL (7.8-10.44); Carbon Dioxide 24 mmol/L (23-31); Chloride 105 mmol/L (98-107); Estimated GFR-MDRD 45; Globulin 3.1 g/dL (2.4-3.5); Glucose 90 mg/dL (83-110); Potassium 4.1 mmol/L (3.5-5.1); Sodium 137 mmol/L (136-145)
[2020-04-08 15:24] LABS: Hemoglobin 10.9 g/dL (14.0-18.0); MDiff Complete? YES; Mean Corpuscular HGB CONC 31.5 g/dL (32.0-36.0); Mean Corpuscular Hemoglobin 30.2 pg (27.0-31.0); Mean Corpuscular Volume 95.7 fL (78.0-98.0); Mean Platelet Volume 8.6 fL (7.4-10.4); Platelet Count 102 thou/uL (130-400); RBC Distribution Width 14.7 % (11.5-14.5); Red Blood Cell (RBC) Count 3.63 mill/uL (4.70-6.10); White Blood Cell (WBC) Count 5.3 thou/uL (4.8-10.8)
[2020-04-08 15:25] LABS: Band 1 % (5-11); Eosinophils 8 % (0-10); Lymphocytes 29 % (21-51); Monocytes 16 % (0-10); Neutrophil 46 % (42-75); Platelet Morphology Comment Appears Decreased; RBC Morphology Normal
[2020-04-09 11:03] LABS: SARS-CoV-2 MS2 Positive; SARS-CoV-2 N Gene Negative; SARS-CoV-2 S Gene Negative; SARS-CoV-2 orf1ab Negative
== END 2020-04-08 07:48 | disposition home or self-care (01) ==
LOC: LABBT 07:47
PROVIDERS: ATTEND Internal Medicine Cardiovascular Disease
DX: Z01.818 Encounter for other preprocedural examination (principal); Z11.59 Encounter for screening for other viral diseases; R94.39 Abnormal result of other cardiovascular function study
CPT/HCPCS: 71046; 80053; 85025; 93005; U0003; 87635; 93010

== ENCOUNTER 2020-04-10 05:57 | Observation (INO) | payer MEDICARE ==
[2020-04-10] MEDS ORDERED: Heparin 10,000 UNITS/1 ML VIAL ONE (06:36)
[2020-04-10] MEDS ORDERED: Fentanyl 100 MCG/2 ML VIAL ONE (07:11)
[2020-04-10] MEDS ORDERED: Midazolam HCl 2 mg/2 ml Vial ONE (07:12)
[2020-04-10 07:28] LABS: Cardiac Risk 2.8 (Less than 4.5)
[2020-04-10] MEDS ORDERED: Protamine Sulfate 50 MG/5 ML VIAL ONE (08:03)
[2020-04-10] MEDS: Ezetimibe 10 MG TAB PO SCH (09:00)
[2020-04-10] MEDS: Finasteride 5 MG TAB PO SCH (09:00)
[2020-04-10] MEDS: Carvedilol 6.25 MG TAB PO SCH ×2 (09:00→20:37)
[2020-04-10] MEDS: Rosuvastatin 20 MG TAB PO SCH (09:00)
[2020-04-10] MEDS: Furosemide 40 MG TAB PO SCH (09:00)
[2020-04-10] MEDS: Aspirin 81 mg Enteric Coated Tablet PO SCH (09:00)
[2020-04-10] MEDS: Tamsulosin HCl 0.4 MG CAP PO SCH (09:00)
[2020-04-10] MEDS ORDERED: Sodium Chloride 0.9% 1,000 ML IV SCH ×2 (09:13→15:14)
[2020-04-10] MEDS ORDERED: Nitroglycerin 0.4 MG TAB (25 Tab Bottle) SL PRN (09:13)
[2020-04-10] MEDS ORDERED: Acetaminophen/Codeine 30-300mg Tablet PO PRN ×2 (09:13)
[2020-04-10] MEDS ORDERED: traMADol HCl 50 MG TAB PO PRN (09:13)
[2020-04-10] MEDS ORDERED: Acetaminophen 500 MG TAB PO PRN (09:22)
[2020-04-10] MEDS ORDERED: Colchicine 0.6 MG TAB PO PRN (09:25)
[2020-04-10] MEDS ORDERED: Iopamidol 370 76% 50 ML VIAL FS ONE (09:57)
[2020-04-10] MEDS ORDERED: Iopamidol 370 76% 100 ML VIAL ONE (09:57)
[2020-04-10 15:30] VITALS: BMI 28.8
[2020-04-11 05:17] LABS: Anion Gap 14 mmol/L (10-20); BUN (Urea Nitrogen) 18 mg/dL (8.4-25.7); Calc. Creatinine Clearance 54 mL/min (70-130); Calcium 8.6 mg/dL (7.8-10.44); Carbon Dioxide 20 mmol/L (23-31); Chloride 111 mmol/L (98-107); Estimated GFR-MDRD 55; Glucose 94 mg/dL (83-110); Potassium 3.8 mmol/L (3.5-5.1); Sodium 141 mmol/L (136-145)
--- NOTE | 2020-04-11 06:51 | CON ---
DATE OF CONSULTATION: 04/10/2020 Dictated by Radha Gutiérrez, nurse practitioner, as a scribe for Dr. Tapan Fregoso. Consultation performed by Dr. Tapan Fregoso. REFERRING PHYSICIAN: Callum Mcallister MD REASON FOR CONSULTATION: Consideration of biventricular pacemaker versus ICD. HISTORY OF PRESENT ILLNESS: Mr. Dinh is an 89-year-old gentleman with a history of ischemic cardiomyopathy. In November, his ejection fraction was 35% to 40%, but more recently reassessed at 30% to 35%. He has been optimized on medical management. He underwent a nuclear stress test that was abnormal and today he was taken to the [facility] for left and right heart catheterization. No intervention was performed and his ejection fraction today is assessed at 20%. He also carries a history of chronic atrial fibrillation, rate controlled and on Eliquis 2.5 mg b.i.d. given his advanced age and declining kidney function. He has declined a LifeVest in the past. EP consultation was requested for discussion of biventricular pacemaker versus biventricular ICD. Mr. Dinh is feeling well. He has recently finished his heart catheterization, his is at bedside. He denies any current complaints or symptoms. He denies any heart racing, palpitations, chest pain, pressure, syncope, near syncope, stroke, stroke-like symptoms. 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 He denies any shortness of breath. Also, of note, he has a history of GI hemorrhage and bleeding duodenal ulcer on Xarelto in the past. REVIEW OF SYSTEMS: A 12-point review of systems is unremarkable and as per HPI. PAST MEDICAL HISTORY: 1. Ischemic cardiomyopathy: a. EF 35% to 40% in November 2019. b. EF 30% to 35% in March 2020. c. EF 20% by left heart catheterization on 04/10/2020. 2. Upper GI bleed with duodenal ulcer 02/17 while on Xarelto. 3. Left heart catheterization on 04/10/2020, no intervention performed, right heart catheterization also performed. 4. Chronic kidney disease. 5. Hypercholesterolemia. 6. Chronic atrial fibrillation, rate controlled. 7. Left bundle-branch block. 8. Nonrheumatic aortic valve insufficiency, moderate. 9. 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 10. Coronary artery disease, status post bypass grafting. HOME MEDICATION LIST: 1. Tylenol as needed. 2. Aspirin 81 mg daily. 3. Carvedilol 12.5 mg b.i.d. 4. Colchicine 0.6 mg daily p.r.n. 5. Zetia 10 mg one-half tablet daily. 6. Proscar 5 mg daily. 7. Furosemide 40 mg daily. 8. Pantoprazole 40 mg daily. 9. Rosuvastatin 20 mg daily. 10. Tamsulosin 0.4 mg daily. 11. Tramadol q.6 hours p.r.n. 12. Eliquis 2.5 mg b.i.d. FAMILY HISTORY: Noncontributory. SOCIAL HISTORY: , retired. Denies alcohol, tobacco, or illicit drug use. OBJECTIVE: VITAL SIGNS: Pulse 53, respirations 16, oxygen 97% on 2 L, blood pressure 158/72, and respirations 16. GENERAL: The patient is alert and oriented. Speech is clear. Affect is appropriate. He is resting comfortably on the gurney post heart catheterization. He is in no distress. His is at bedside. HEENT: Normocephalic and atraumatic. He is wearing glasses. Sclerae are anicteric. EOMs are intact. Oral mucosa is moist and pink with adequate dentition. NECK: Supple without jugular venous distention. HEART: Rate is irregular and slightly slow. PMI is nonpalpable due to habitus. LUNGS: Clear to auscultation bilaterally without wheezes, crackles, or rhonchi. ABDOMEN: Obese, soft, and nontender without palpable masses. EXTREMITIES: Warm and dry to touch without clubbing, cyanosis, or edema. Large joints and arthritic changes are noted bilaterally to his knees. NEUROLOGIC: Grossly intact and nonfocal. Gait was not assessed post catheterization. DATABASE: EKG today shows atrial fibrillation with left bundle-branch block. QRS duration 150 milliseconds and single premature ventricular complex. LABORATORY DATA: Creatinine 1.46 and potassium 4.1. Liver enzymes within normal ranges. Hemoglobin 10.9 and WBC 5.3. IMPRESSION: 1. Ischemic cardiomyopathy with a severely reduced ejection fraction despite medical management, left heart catheterization showed no new lesions requiring PCI. 2. Left bundle-branch block. 3. Chronic atrial fibrillation. 4. Chronic kidney disease. 5. Anticoagulation on reduced dose of Eliquis due to age and kidney function. 6. History of gastrointestinal bleed, on Xarelto. PLAN AND RECOMMENDATIONS: Mr. Dinh is a very pleasant 89-year-old gentleman, whom we find this year has had a severely reduced ejection fraction. There has been no ischemic or reversible cause identified. He is also seen to have chronic atrial fibrillation that is rate controlled, slightly bradycardic even, and a left bundle-branch block with QRS of 150 milliseconds. He is certainly a candidate for biventricular pacing with his recent reduction in ejection fraction and newly found bundle branch block. We also discussed the utility of a defibrillator and his risk for ventricular arrhythmias that may cause sudden cardiac in the setting of ischemic cardiomyopathy with severely reduced ejection fraction. After discussion of treatment options, he wishes to pursue biventricular pacemaker support only, declining ICD protection. He understands the potential for sudden cardiac and he is okay with that. He is 89 years old and reports that if it is time to go, he does not want to prevent that. We discussed the risks, benefits, and alternatives associated with pacemaker implant. His atrial fibrillation is thought to be chronic, so he will likely only require ventricular leads. We will schedule him for an outpatient procedure. He is being kept overnight currently for hydration to flush out his kidneys following his heart catheterization. We will allow for some continued recovery time before giving the additional contrast with venogram. The patient voices understanding and understands he will be contacted by my office to move forward with scheduling in the future. Thank you for allowing me to participate in the care of this patient. Job ID: [id number]
[2020-04-11 08:56] VITALS: BP 139/72; TEMP 98
[2020-04-11] MEDS ORDERED: Lisinopril 5 MG TAB PO SCH (09:00)
[2020-04-11] MEDS: Carvedilol 6.25 MG TAB PO SCH (09:23)
[2020-04-11] MEDS: Aspirin 81 mg Enteric Coated Tablet PO SCH (09:23)
[2020-04-11] MEDS: Furosemide 40 MG TAB PO SCH (09:24)
[2020-04-11] MEDS: Finasteride 5 MG TAB PO SCH (09:24)
[2020-04-11] MEDS: Rosuvastatin 20 MG TAB PO SCH (09:24)
[2020-04-11] MEDS: Tamsulosin HCl 0.4 MG CAP PO SCH (09:24)
[2020-04-11] MEDS: Ezetimibe 10 MG TAB PO SCH (09:24)
--- NOTE | 2020-04-13 07:24 | DIS ---
DATE OF ADMISSION: 04/10/2020 DATE OF DISCHARGE: 04/11/2020 DISCHARGE DIAGNOSES: 1. Severe ischemic cardiomyopathy with ejection fraction fall into 20% to 25%. 2. Status post coronary artery bypass grafting x3 and bioprosthetic mitral valve replacement with all grafts patent at this time. 3. Left bundle-branch block. 4. Moderate aortic insufficiency. 5. Probably now chronic atrial fibrillation. Overall, he wished rate control and anticoagulation alone. 6. Hypercholesterolemia. 7. Hypertension. 8. Positive family history. 9. Chronic kidney disease. 10. History of small bowel obstruction secondary to adhesions with lysis of adhesions in November 2018. 11. History of gastrointestinal hemorrhage. DISCHARGE MEDICATIONS: On April 13, 2020, he will resume Eliquis 5 b.i.d. He will continue his other medications - 1. Aspirin 81 q.a.m. 2. Carvedilol 12.5 b.i.d. 3. Colchicine 0.6 mg daily p.r.n. 4. Zetia 10 mg daily. 5. Rosuvastatin 20 mg daily. 6. Finasteride 5 mg daily. 7. Furosemide 40 mg q.a.m. 8. Lisinopril 5 mg daily. 9. Flomax 0.4 mg daily. 10. Tramadol one tablet q.6 hours p.r.n. DISCHARGE DISPOSITION: Dr. Fregoso will make arrangements for biventricular pacemaker insertion with his continued falling ejection fraction (at the present time, the patient has declined ICD and LifeVest). He will be seen in August 2020 with his routine labs as well as echocardiogram to reassess left ventricular function. HOSPITAL COURSE: Mr. Dinh was being evaluated for cardiology clearance prior to hernia surgery. He underwent nuclear stress test, which revealed fixed inferior wall defect. He underwent cardiac catheterization. This revealed pulmonary artery hypertension with PA pressure of 65/27. Wedge pressure was 19. It had been noted in January 2020 that his ejection fraction had fallen to 30% to 35%. At that time , he was strongly urged to see Electrophysiology for placement of a biventricular ICD or pacemaker. However, he did not pursue that. His ejection fraction on catheterization now was 20% to 25%. There was a 90% mid LAD, 70% to 80% second obtuse marginal and in the right coronary artery, a 99% and 90% mid stenosis. Bypass grafts revealed patent NESS to the LAD, patent second obtuse marginal and patent distal right coronary artery. Due to creatinine of 1.46, it was felt best to continue to hydrate him overnight. His creatinine has now fallen to 1.23 and he will be discharged. Job ID: [id number] MTDD
== END 2020-04-11 10:17 | disposition home or self-care (01) ==
LOC: CCL 05:57 → 2NO 08:51
PROVIDERS: ADMIT Internal Medicine Cardiovascular Disease; ATTEND Internal Medicine Cardiovascular Disease
PROC: 4A023N8 Measurement of Cardiac Sampling and Pressure, Bilateral, Percutaneous Approach (ICD-10-PCS; principal; 2020-04-10)
PROC: B2111ZZ Fluoroscopy of Multiple Coronary Arteries using Low Osmolar Contrast (ICD-10-PCS; 2020-04-10)
PROC: B2181ZZ Fluoroscopy of Left Internal Mammary Bypass Graft using Low Osmolar Contrast (ICD-10-PCS; 2020-04-10)
PROC: B2171ZZ Fluoroscopy of Right Internal Mammary Bypass Graft using Low Osmolar Contrast (ICD-10-PCS; 2020-04-10)
PROC: B2121ZZ Fluoroscopy of Single Coronary Artery Bypass Graft using Low Osmolar Contrast (ICD-10-PCS; 2020-04-10)
DX: I25.5 Ischemic cardiomyopathy (principal); I25.10 Atherosclerotic heart disease of native coronary artery without angina pectoris; I44.7 Left bundle-branch block, unspecified; I35.1 Nonrheumatic aortic (valve) insufficiency; I48.0 Paroxysmal atrial fibrillation; E78.00 Pure hypercholesterolemia, unspecified; I12.9 Hypertensive chronic kidney disease with stage 1 through stage 4 chronic kidney disease, or unspecified chronic kidney disease; N18.9 Chronic kidney disease, unspecified; E78.5 Hyperlipidemia, unspecified; Z87.891 Personal history of nicotine dependence; Z79.01 Long term (current) use of anticoagulants; Z79.82 Long term (current) use of aspirin; Z79.899 Other long term (current) drug therapy; Z88.0 Allergy status to penicillin; Z95.1 Presence of aortocoronary bypass graft; Z95.3 Presence of xenogenic heart valve
CPT/HCPCS: 80048; 80061; 85347; 93005; 93461; G0378 ×2; 36415; 93010; 99152; 99153; J1644; J2250; J2720; J3010; Q9967

== ENCOUNTER 2020-04-20 05:42 | Outpatient (CLI) | payer MEDICARE, OTHER ==
[2020-04-20 11:17] LABS: INR-International Normal Ratio 1.2; Prothrombin Time 15.4 sec (12.0-14.7)
[2020-04-20 11:18] LABS: PTT 41.6 sec (22.9-36.1)
[2020-04-20 12:24] LABS: Hemoglobin 10.9 g/dL (14.0-18.0); Mean Corpuscular HGB CONC 31.6 g/dL (32.0-36.0); Mean Corpuscular Hemoglobin 30.6 pg (27.0-31.0); Mean Corpuscular Volume 96.9 fL (78.0-98.0); Mean Platelet Volume 8.5 fL (7.4-10.4); Platelet Count 96 thou/uL (130-400); RBC Distribution Width 14.4 % (11.5-14.5); Red Blood Cell (RBC) Count 3.56 mill/uL (4.70-6.10); White Blood Cell (WBC) Count 4.8 thou/uL (4.8-10.8)
[2020-04-20 12:37] LABS: Anion Gap 11 mmol/L (10-20); BUN (Urea Nitrogen) 19 mg/dL (8.4-25.7); Calc. Creatinine Clearance 0 mL/min (70-130); Carbon Dioxide 26 mmol/L (23-31); Chloride 107 mmol/L (98-107); Estimated GFR-MDRD 43; Glucose 110 mg/dL (83-110); Sodium 140 mmol/L (136-145)
[2020-04-21 13:09] LABS: SARS-CoV-2 MS2 Positive; SARS-CoV-2 N Gene Negative; SARS-CoV-2 S Gene Negative; SARS-CoV-2 orf1ab Negative
--- NOTE | 2020-04-22 19:37 | EKG ---
Test Reason : POST PACREMAKER INSE Blood Pressure : / mmHG Vent. Rate : 067 BPM Atrial Rate : 133 BPM P-R Int : 000 ms QRS Dur : 186 ms QT Int : 534 ms P-R-T Axes : 000 252 038 degrees QTc Int : 564 ms Electronic ventricular pacemaker with PVC's When compared with ECG of 10-APR-2020 09:58, (Unconfirmed) Previous ECG has undetermined rhythm, needs review Confirmed by DR. Pina JAUREGUI ([id number]) on 04/22/2020 7:37:12 PM Referred By: JOSE Confirmed By:DR. Pina JAUREGUI
== END 2020-04-20 05:43 | disposition home or self-care (01) ==
LOC: LABBT 05:42
PROVIDERS: ATTEND Internal Medicine Cardiovascular Disease
DX: Z01.818 Encounter for other preprocedural examination (principal); Z11.59 Encounter for screening for other viral diseases; I44.7 Left bundle-branch block, unspecified
CPT/HCPCS: 80048; 85027; 85610; 85730; U0003; 87635; 93005; 93010

== ENCOUNTER → 2020-04-22 | Day surgery (SDC) | payer MEDICARE ==
[2020-04-17 12:30] VITALS: BMI 27.8
[~2020-04-22] MED LIST changes: +Carvedilol 6.25 MG TAB PO SCH; +Clindamycin/D5W 600 mg/50 ml Premix Bag ONE; +Fentanyl 100 MCG/2 ML VIAL ONE; +Gentamicin 80 MG/2 ML VIAL ONE; -ISOVUE-370 76%-LOCM 1 ML ONE; +Lidocaine 2% Jelly 5 ML TUBE ONE; +Lisinopril 2.5 MG TAB ONE; +Phenylephrine 10 MG/ML VIAL ONE; +Propofol 1,000 MG/100 ML VIAL IV ONE; +hydrALAZINE 20 MG/ML VIAL ONE; +hydrALAZINE 20 MG/ML VIAL SLOW IVP SCH
== END ==
LOC: CCL 08:27
PROVIDERS: ATTEND Internal Medicine Cardiovascular Disease
PROC: 0JH607Z Insertion of Cardiac Resynchronization Pacemaker Pulse Generator into Chest Subcutaneous Tissue and Fascia, Open Approach (ICD-10-PCS; principal; 2020-04-22)
PROC: 02H63JZ Insertion of Pacemaker Lead into Right Atrium, Percutaneous Approach (ICD-10-PCS; 2020-04-22)
PROC: 02HK3JZ Insertion of Pacemaker Lead into Right Ventricle, Percutaneous Approach (ICD-10-PCS; 2020-04-22)
PROC: 02H43JZ Insertion of Pacemaker Lead into Coronary Vein, Percutaneous Approach (ICD-10-PCS; 2020-04-22)
DX: I44.7 Left bundle-branch block, unspecified (principal); I25.5 Ischemic cardiomyopathy; I48.19 Other persistent atrial fibrillation; Z79.01 Long term (current) use of anticoagulants; Z79.82 Long term (current) use of aspirin; Z79.899 Other long term (current) drug therapy; Z88.0 Allergy status to penicillin
CPT/HCPCS: 33208; 33225; 36005; 75820; 76942; 93005; C1882; C1898; C1900; J0360; J1580; J2370; J2704; J3010; J3490